=== PATIENT | male | born 1945 | race Caucasian/White ===

== ENCOUNTER → 2018-06-24 13:16 | Outpatient (CLI) | payer MEDICARE, MEDICAID, SELFPAY ==
[2018-06-24 14:16] LABS: Alanine Aminotransferase 22 IU/L (21-72); Albumin 4.3 g/dL (3.5-5.0); Albumin Globulin Ratio 1.3 (1.0-2.8); Alkaline Phosphatase 55 U/L (38-126); Aspartate Aminotransferase 32 IU/L (17-59); Bilirubin Total 0.7 mg/dL (0.2-1.3); Blood Urea Nitrogen 17 mg/dL (9-20); Calcium 9.2 mg/dL (8.4-10.2); Carbon Dioxide 34 mmol/L (22-32); Chloride 102 mmol/L (98-107); Estimated Glomerular Filt Rate > 60.0 mL/min (>60); Globulin 3.2 g/dL (1.7-4.1); Glucose 110 mg/dL (80-110); HEMOLYSIS < 15 (0-50); Potassium 4.1 mmol/L (3.4-5.1); Sodium 144 mmol/L (137-145); Total Protein 7.5 g/dL (6.3-8.2)
== END ==
PROVIDERS: PCP Internal Medicine; Visit Provider Internal Medicine
DX: I10 Essential (primary) hypertension (principal); R60.9 Edema, unspecified
CPT/HCPCS: 36415; 80053

== ENCOUNTER → 2018-07-08 16:17 | Outpatient (CLI) | payer MEDICARE, MEDICAID, SELFPAY | PROVIDERS: PCP Internal Medicine; Visit Provider Internal Medicine | DX: R97.20 Elevated prostate specific antigen [PSA] (principal) | CPT/HCPCS: 36415; 84153 ==

== ENCOUNTER → 2018-07-22 15:45 | Outpatient (CLI) | payer MEDICARE, MEDICAID, SELFPAY ==
[2018-07-25 13:40] LABS: Fecal Immunochemical Test NOT DETECTED
== END ==
PROVIDERS: Family Provider Internal Medicine; PCP Internal Medicine; Visit Provider Internal Medicine
DX: Z12.11 Encounter for screening for malignant neoplasm of colon (principal)
CPT/HCPCS: 82274

== ENCOUNTER → 2019-03-09 09:32 | Outpatient (CLI) | payer MEDICARE, MEDICAID, SELFPAY ==
[2019-03-09 11:14] LABS: Alanine Aminotransferase 27 IU/L (21-72); Albumin 3.9 g/dL (3.5-5.0); Albumin Globulin Ratio 1.3 (1.0-2.8); Alkaline Phosphatase 53 U/L (38-126); Aspartate Aminotransferase 34 IU/L (17-59); Bilirubin Total 0.9 mg/dL (0.2-1.3); Blood Urea Nitrogen 18 mg/dL (9-20); Calcium 9.4 mg/dL (8.4-10.2); Carbon Dioxide 34 mmol/L (22-32); Chloride 101 mmol/L (98-107); Cholesterol 153 mg/dL (140-199); Estimated Glomerular Filt Rate > 60.0 mL/min (>60); Globulin 2.9 g/dL (1.7-4.1); Glucose 82 mg/dL (80-110); HDL Cholesterol 50 mg/dL (40-60); HEMOLYSIS < 15 (0-50); LDL Cholesterol Calculated 94 mg/dL (<100); Potassium 4.4 mmol/L (3.4-5.1); Sodium 140 mmol/L (137-145); Total Protein 6.8 g/dL (6.3-8.2); Triglycerides 44 mg/dL (35-150)
[2019-03-09 11:40] LABS: Prostate Specific Antigen 5.24 ng/mL (0.10-4.00)
== END ==
PROVIDERS: Family Provider Internal Medicine; PCP Internal Medicine; Visit Provider Internal Medicine
DX: I10 Essential (primary) hypertension (principal); R60.9 Edema, unspecified; R97.20 Elevated prostate specific antigen [PSA]
CPT/HCPCS: 36415; 80053; 80061; 84153

== ENCOUNTER → 2019-09-11 10:54 | Outpatient (CLI) | payer MEDICARE, MEDICAID, SELFPAY ==
--- NOTE | 2019-09-11 11:01 | DI.CT.S_ITS ---
PROCEDURE: CT SOFT TISSUE NECK WO CON INDICATIONS: lymphadenopathy TECHNIQUE: Non-contrast 3.0 mm axial sections acquired from the sella to the aortic arch. Additional oblique axial 3.0 mm sections acquired through the pharynx. 3 mm thick coronal and sagittal reformats were generated. For radiation dose reduction, the following was used: automated exposure control. COMPARISON: None. FINDINGS: Image quality: Significantly limited by absence of intravenous contrast.. Lymph nodes: There appears to be enlarged lymph nodes involving the left neck, best seen at the anterior border of the sternocleidomastoid muscle on the left where a node measuring up to 1.6 x 2.2 cm in maximal axial dimension can be seen (series 2 image 31). Slightly more superiorly along the left tonsillar pillar there is a masslike structure with a maximal axial dimension of up to 2.3 cm oblique AP and 2.7 cm transverse, with an estimated craniocaudad length of 4 cm. This mass appears to distort the left margin of the pharynx, best seen centered on series 2 image 20. The absence of intravenous contrast disallows accurate establishing of the exact borders between what appears to be infiltrative soft tissue mass and adjacent normal structures.. Vessels: Non-opacified vessels appear normal in caliber. Neck spaces: The oropharynx, nasopharynx, and pharynx demonstrate no definite inward projecting mucosal lesions but the left-sided tonsillar pillar mass may be associated with a visible mucosal lesion on examination. The vocal cords, false vocal cords, pyriform sinuses, epiglottis, vallecula, and tongue base all appear normal. Extramucosal spaces appear unremarkable. Glands: The parotid and submandibular glands appear normal, without stones. Thyroid gland appears normal where well seen. Miscellaneous: Visualized brain and orbits appear normal. Lung apices appear clear. Superficial soft tissues appear normal. IMPRESSION: Quality of visualization is significantly limited by the absence of intravenous contrast. The findings are worrisome for representing a malignant appearing mass along the soft tissues deep to the mucosal surface over the left tonsillar pillar, with associated adjacent adenopathy. An area of osteomyelitis involving the maxilla or mandible nearby on the left is not found. Contrast enhanced CT scanning or MR scanning would appear warranted as would be ENT consultation for direct visualization and clinical evaluation into the areas of current CT concern. Dictated by: Demond Bejarano M.D. on 09/11/2019 at 16:21 Approved by: Demond Bejarano M.D. on 09/11/2019 at 16:30
== END ==
PROVIDERS: Family Provider Internal Medicine; PCP Internal Medicine; Visit Provider Internal Medicine
DX: R59.0 Localized enlarged lymph nodes (principal)
CPT/HCPCS: 70490

== ENCOUNTER → 2019-10-28 12:44 | Outpatient (CLI) | payer MEDICARE, MEDICAID, SELFPAY ==
[2019-10-28 14:12] LABS: Alanine Aminotransferase 12 IU/L (<50); Albumin Globulin Ratio 1.1 (1.0-2.8); Alkaline Phosphatase 58 U/L (38-126); Aspartate Aminotransferase 29 IU/L (17-59); BUN Creatinine Ratio 16.7 (6-22); Bilirubin Total 0.5 mg/dL (0.2-1.3); Blood Urea Nitrogen 15 mg/dL (9-20); Calcium 9.3 mg/dL (8.4-10.2); Carbon Dioxide 31 mmol/L (22-32); Chloride 99 mmol/L (98-107); Estimated Glomerular Filt Rate > 60.0 mL/min (>60); Globulin 3.5 g/dL (1.7-4.1); Glucose 101 mg/dL (80-110); HEMOLYSIS < 15 (0-50); Potassium 4.3 mmol/L (3.4-5.1); Sodium 139 mmol/L (137-145); Total Protein 7.5 g/dL (6.3-8.2)
[2019-10-28 15:44] LABS: Prostate Specific Antigen 9.09 ng/mL (0.10-4.00)
== END ==
PROVIDERS: Family Provider Internal Medicine; PCP Internal Medicine; Referring Provider Internal Medicine; Visit Provider Internal Medicine
DX: I10 Essential (primary) hypertension (principal); R97.20 Elevated prostate specific antigen [PSA]
CPT/HCPCS: 36415; 80053; 84153

== ENCOUNTER → 2019-10-31 09:42 | Outpatient (CLI) | payer MEDICARE, MEDICAID, SELFPAY ==
--- NOTE | 2019-10-31 10:38 | DI.CT.S_ITS ---
PROCEDURE: CT CHEST W CON INDICATIONS: left tonsil cancer TECHNIQUE: After the administration of intravenous contrast, 5 mm thick sections acquired from the pulmonary apices to the posterior costophrenic angles. 1 mm axial lung, 5 mm thick coronal and sagittal reformats and 7 mm axial MIP were acquired. For radiation dose reduction, the following was used: automated exposure control, adjustment of mA and/or kV according to patient size. COMPARISON: [facility], CT, CT SOFT TISSUE NECK W CON, 10/31/2019, 10:17. FINDINGS: Image quality: Excellent. Lungs and pleura: No acute air space opacities. No pleural effusions or pneumothorax. Central and peripheral airways are patent and normal in caliber. Mediastinum: Heart size is normal. No pericardial effusion. No mediastinal or hilar adenopathy by size criteria. Thoracic aorta and central pulmonary arteries are normal in size. Esophagus is normal in caliber. No hiatal hernia. Bones and chest wall: No suspicious bony lesions. No vertebral body compression fractures. No axillary or supraclavicular adenopathy by size criteria. Thyroid gland appears normal where well seen. Abdomen: Visualized upper abdominal solid organs appear normal. Upper abdominal bowel loops are normal in caliber. IMPRESSION: No evidence of metastatic disease from documented head and neck cancer on the left. Pulmonary hyperexpansion, centrilobular emphysema, but no evidence of pulmonary mass lesion is found. No mediastinal or hilar adenopathy is seen. Dictated by: Demond Bejaarno M.D. on 10/31/2019 at 13:23 Approved by: Demond Bejarano M.D. on 10/31/2019 at 13:25
--- NOTE | 2019-10-31 10:38 | DI.CT.S_ITS ---
PROCEDURE: CT SOFT TISSUE NECK W CON INDICATIONS: TONSIL CANCER TECHNIQUE: After the administration of intravenous contrast, 3.0 mm axial sections acquired from the sella to the aortic arch. Additional oblique axial 3.0 mm sections acquired through the pharynx. 3 mm thick coronal and sagittal reformats were generated. For radiation dose reduction, the following was used: automated exposure control. COMPARISON: [facility], CT, CT SOFT TISSUE NECK WO CON, 09/11/2019, 10:54. [facility], [place], PET NECK TO MID THIGH, 10/25/2019, 10:00. [facility], CT, CT CHEST W CON, 10/31/2019, 10:17. FINDINGS: Image quality: Excellent. Lymph nodes: There is an enlarged left level IIA lymph node seen, as on series 2 image 47, which measures 2 x 1.6 cm in greatest axial dimension. Vessels: Visualized vasculature appears patent. Neck spaces: Within the left tonsillar region, there is an enhancing mass seen, as on series 2 image 37 measures 2.9 x 2.2 cm in greatest axial dimension and corresponds well to the prior images. The nasopharynx, and pharynx demonstrate no mucosal lesions. The vocal cords, false vocal cords, pyriform sinuses, epiglottis, vallecula, and tongue base all appear normal. Extramucosal spaces appear unremarkable. Glands: The parotid and submandibular glands appear normal. Thyroid gland demonstrates no significant CT abnormality. Miscellaneous: Visualized brain and orbits appear normal. Lung apices appear clear. Superficial soft tissues appear normal. Bones: No suspicious bony lesions. Visualized sinuses and mastoids appear unremarkable. Relatively prominent cervical spine degenerative changes are seen, including bridging anterior osteophytes C4-C6. Moderate to severe disc space narrowing can be seen at C5-C6 and C6-C7. IMPRESSION: Left tonsillar mass, with an enlarged left cervical lymph node. No significant changes from prior images can be seen. Prominent cervical spine degenerative changes are seen. Dictated by: Broderick Longoria M.D. on 10/31/2019 at 13:19 Approved by: Broderick Longoria M.D. on 10/31/2019 at 13:23
== END ==
PROVIDERS: Family Provider Internal Medicine; PCP Internal Medicine; Referring Provider Internal Medicine Hematology & Oncology; Visit Provider Internal Medicine Hematology & Oncology
DX: C09.9 Malignant neoplasm of tonsil, unspecified (principal); R59.0 Localized enlarged lymph nodes; M47.812 Spondylosis without myelopathy or radiculopathy, cervical region
CPT/HCPCS: 70491; 71260; Q9967

== ENCOUNTER 2019-11-07 13:31 | Day surgery (SDC) | payer MEDICARE, MEDICAID, SELFPAY ==
[2019-11-06 08:17] VITALS: BMI 30.3
[2019-11-07 13:58] VITALS: BP 111/66; PULSE 63; RESP 12; O2SAT 99; BMI 30.3
[2019-11-07] MEDS: LACTATED RINGERS 1,000 ML 42 ML IV (14:30)
--- NOTE | 2019-11-07 15:25 | PM.HP.1 ---
History of Present Illness History of Present Illness Date Patient Seen: 11/07/19 Time Patient Seen: 15:25 Chief complaint: [id number] Narrative: This 74-year-old man with left tonsil squamous cell carcinoma who requires a Port-A-Cath placement for chemotherapy. He recently had a dental infection has been on antibiotic therapy and is recovering. No fever. No external wounds. No previous Port-A-Cath placement or major vascular interventions. Patient History Medical History Edema (Chronic 10/06/11) Elevated PSA (Chronic) Essential hypertension (Chronic 10/06/11) Hypertension (Chronic) Recurrent major depressive disorder, in full remission (Chronic 10/06/11) Surgical History History of surgery on upper extremity (Acute ~1952) Family & Social History Family History Mother Pancreatic cancer Thyroid cancer Father Prostate cancer Social History: household members spouse lives independently Yes caregiver/support person No Tobacco & Substance use: Tobacco type cigarettes,pipe,cigars Smoking Status Former smoker alcohol intake current alcohol intake frequency a few times a month Substance Use Type does not use Meds Home Medications and Allergies Home Medications Medication Instructions Recorded Confirmed Type Disabled Parking #1 each 08/08/18 10/30/19 Rx lamotrigine 100 mg tablet See Rx Instructions .ROUTE 06/30/19 11/07/19 Rx .COMPLEX #90 tablet atenolol 50 mg tablet See Rx Instructions .ROUTE 09/26/19 11/07/19 Rx .COMPLEX #90 tablet Tylenol 500 mg PRN 11/07/19 History Vision BID 11/07/19 History clindamycin HCl 300 mg QID 11/07/19 11/07/19 History ibuprofen 200 mg PRN 11/07/19 History metronidazole 500 mg TID 11/07/19 11/07/19 History Allergies Allergy/AdvReac Type Severity Reaction Status Date / Time Penicillins [PENICILLINS] Allergy Mild A CHILD Verified 09/05/19 10:05 Review of Systems Review of Systems Narrative: A 10 point review of systems is negative except as noted in the HPI Exam Vital Signs (past 8 hours): - 11/07/19 13:58 Pulse Rate 63 Respiratory Rate 12 Blood Pressure 111/66 Pulse Oximetry 99 Oxygen Delivery Method Room Air Narrative Exam Narrative: General-no acute distress, well nourished HEENT-moist mucous membranes, no scleral icterus Neck-supple, no lymphadenopathy Chest- non labored respirations, clear to auscultation bilaterally Cardiac-regular rate no peripheral edema Abdomen-soft, nontender, non distended Extremities-warm, well perfused Neurological-alert and oriented, no focal deficits Assessment & Plan Assessment and plan (1) Squamous cell carcinoma of left tonsil: Current visit: Yes Status: Acute Assessment & Plan narrative: 74-year-old male head and neck cancer requires Port-A-Cath placement. We discussed the nature of the procedure and its risks including bleeding infection pneumothorax. His questions have been answered and he is in agreement with this plan. Proceed to the operating.
[2019-11-07] MEDS: CLINDAMYCIN 900 MG/50 ML PIGGYBACK 50 MG IV (16:01)
--- NOTE | 2019-11-07 16:17 | SUR.OPER ---
Supine on padded OR bed, head on pillow, arm padded and tucked at side, legs uncrossed, safety belt at thigh, tape over blanket over lower legs .
[2019-11-07] MEDS: BUPIVACAINE 0.25% (PF) VIAL 30 ML INJ (16:20)
[2019-11-07] MEDS: HEPARIN 5,000 UNIT, SODIUM CHLORIDE 0.9% 50 ML IV (16:21)
--- NOTE | 2019-11-07 16:31 | DI.RAD.S_ITS ---
PROCEDURE: XR CHEST 1V INDICATIONS: POST PORT PLACEMENT TECHNIQUE: One view of the chest was acquired. COMPARISON: None. FINDINGS: Surgical changes and devices: Port-A-Cath in satisfactory position. Tip projects to the superior vena cava. Lungs and pleura: Lungs are clear. No pleural effusions or pneumothorax. Mediastinum: Mediastinal contours appear normal. Heart size is normal. Bones and chest wall: No suspicious bony lesions. Overlying soft tissues appear unremarkable. IMPRESSION: Port-A-Cath in satisfactory position. No acute pulmonary process. Dictated by: Kun Brink M.D. on 11/08/2019 at 9:08 Approved by: Kun Brink M.D. on 11/08/2019 at 9:09
[2019-11-07 16:43] VITALS: BP 108/64; PULSE 58; RESP 11; TEMP 36.9; O2SAT 99
[2019-11-07 16:48] VITALS: BP 103/57; PULSE 60; RESP 12; O2SAT 98
[2019-11-07 16:52] VITALS: BP 108/67; PULSE 60; RESP 14; TEMP 36.8; O2SAT 100
--- NOTE | 2019-11-07 16:56 | PM.OP.1 ---
Operative Date/Time/Diagnoses Date of procedure: 11/07/19 Time of procedure: 16:56 Pre-op diagnosis: squamous cell carcinoma of tonsil Post-op diagnosis: same Procedure & Clinicians Procedure: right port a cath placement Same procedure as scheduled: Yes Indications: squamous cell carcinoma of tonsil Surgeon: iKshor Solis Click Yes if Unassisted: Yes Anesthesia Type: General Operative Notes Findings: tip of cathether within the SVC. Estimated Blood Loss (mL): 10 Procedure in detail: Patient was brought to the operating room placed supine on table. Bilateral lower extremity compressive devices were applied. General anesthesia was induced and he was intubated with an LMA. He was then prepped and draped in usual sterile fashion. Time-out was performed ensure the correct patient procedure necessary equipment within the operating room. He received 2 g of Ancef prior to incision. Under ultrasound guidance the right internal jugular vein was accessed under direct visualization. The guidewire was then threaded through the needle. Its placement was then confirmed using fluoroscopy. The dilator was then placed over the guidewire. The catheter was then inserted through the sheath. Placement was again confirmed with fluoroscopy. A subcutaneous pocket was made in the right chest wall. The tunneler device was used to move the catheter from the neck to the chest pocket. The port was attached after it was primed with heparined saline. The port was tested to ensure that it flushed easily and had good blood return. The port was then secured to the underlying fascia using interupted 0 Prolene suture. Hemostasis was achieved. The wound was irrigated with sterile saline. The subcutaneous tissues were reapproximated with the 3 0 Vicryl and then skin closed with 4-0 Monocryl. The skin was sealed with Dermabond. Patient tolerated procedure well. The sponge and instrument count at the end operation was correct. Patient emerged from general anesthesia was extubated and taken to the postoperative care unit in stable condition Complications: none Post-operative Condition: stable Disposition: same day surgery
[2019-11-07 16:58] VITALS: BP 107/68; PULSE 58; RESP 15; TEMP 36.8; O2SAT 100
[2019-11-07 17:14] VITALS: BP 110/70; PULSE 68; RESP 14; O2SAT 100
== END 2019-11-07 17:17 | disposition home or self-care (01) ==
PROVIDERS: Family Provider Internal Medicine; PCP Internal Medicine; Referring Provider Surgery; Visit Provider Surgery
PROC: (CPT 36561; principal; 2019-11-07 14:15)
DX: C09.9 Malignant neoplasm of tonsil, unspecified (principal); Z45.2 Encounter for adjustment and management of vascular access device
CPT/HCPCS: 36561; 71045; 76000; C1788; J1644; J2250; J2405; J2704; J3010

== ENCOUNTER 2019-11-18 12:36 | Emergency (ER) | payer MEDICARE, MEDICAID, SELFPAY ==
[2019-11-18 13:01] VITALS: BP 137/92; BP 140/74; PULSE 76; PULSE 84; RESP 14; RESP 16; TEMP 36.4; O2SAT 100; O2SAT 98
--- NOTE | 2019-11-18 13:15 | ED.SKABFB ---
HPI - Skin/Abscess/Foreign Bdy <GABRIELE Michel - Last Filed: 11/18/19 18:47> General Chief complaint: Skin/Abscess/Foreign Body Stated complaint: Rash from antibiotics, sent from [facility] Time Seen by Provider: 11/18/19 12:50 Source: patient and family Mode of arrival: Ambulatory Limitations: no limitations History of Present Illness HPI narrative: The patient is a 74-year-old male who presents with his for chief complaint of a rash on his lower legs. He is a former smoker, scheduled to start radiation chemotherapy next week for a cancer ?attached my tonsil.He states that he recently finished a course of clindamycin and Flagyl for dental infection. He states that he noticed the rash today and that it is speckled on the back of his lower legs. He states he has bilateral lower extremity edema. 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 He states that the rash is not itchy, not painful, and is not blistering. He states his on the back of both of his lower legs, left more so than right. He denies any other rash, any oral mucosa issues, any burning on urination. Related Data Home Medications Medication Instructions Recorded Confirmed Tylenol 500 mg PRN 11/07/19 Vision BID 11/07/19 clindamycin HCl 300 mg QID 11/07/19 11/07/19 ibuprofen 200 mg PRN 11/07/19 metronidazole 500 mg TID 11/07/19 11/07/19 Previous Rx's Medication Instructions Recorded Disabled Parking #1 each 08/08/18 lamotrigine 100 mg tablet See Rx Instructions .ROUTE 06/30/19 .COMPLEX #90 tablet atenolol 50 mg tablet See Rx Instructions .ROUTE 09/26/19 .COMPLEX #90 tablet acetaminophen [Tylenol] 650 mg PO QID PRN #60 cap 11/07/19 Allergies Allergy/AdvReac Type Severity Reaction Status Date / Time Penicillins [PENICILLINS] Allergy Mild A CHILD Verified 09/05/19 10:05 Review of Systems <GABRIELE Michel - Last Filed: 11/18/19 18:47> Review of Systems Narrative: GENERAL: Denies chills, fatigue, malaise, fever, sweats. HEENT: Denies sinus pain, ear pain, sore throat, difficulty swallowing, dizziness. RESPIRATORY: Denies dyspnea, cough, wheezing, hemoptysis, sputum. CARDIOVASCULAR: Denies chest pain, palpitations, orthopnea, edema, GASTROINTESTINAL: Denies nausea, vomiting, abdominal pain, diarrhea, constipation, melena. : Denies dysuria, frequency, incontinence, hematuria, urinary retention. MUSCULOSKELETAL: denies weakness, joint pain, or bony pain SKIN: See HPI NEUROLOGIC: Denies weakness, headache, numbness, change in speech, confusion, seizures, incoordination. PSYCHIATRIC: No concerning psychosocial issues. 12 point review of systems is negative except for those stated above Patient History <GABRIELE Michel - Last Filed: 11/18/19 18:47> Social History marital status: number of children: 4 household members: spouse lives independently: Yes caregiver/support person: No housing: house pets and animals: No education level: other (Graduate school after [employer]) occupational status: other (Retired) Previous occupational history: [employer] in [place] [employer]ianism: [employer] travel history: over 6 months ago (2002 for 5 months) leisure activities: fishing Smoking Status: Former smoker Tobacco: How many years used: 15 Smokeless tobacco user: other (Cigarettes, pipe, cigars) quit status: quit date established (1980) second hand exposure: No alcohol intake: current substance use type: does not use Smoking Status: Former smoker alcohol intake frequency: a few times a month Substance Use Type: does not use Exam <GABRIELE Michel - Last Filed: 11/18/19 18:47> Narrative Exam Narrative: GENERAL: This is a well-nourished, well-developed patient, in no acute distress HEAD: Atraumatic. Normocephalic. No temporal or scalp tenderness. EYES: Pupils equal round and reactive. Extraocular motions intact. No scleral icterus. No injection or drainage. ENT: Nose without bleeding, purulent drainage or septal hematoma. Throat without erythema, tonsillar hypertrophy or exudate. Uvula midline. Airway patent. NECK: Trachea midline. No JVD or lymphadenopathy. Supple, nontender, no meningeal signs. CARDIOVASCULAR: Regular rate and rhythm RESPIRATORY: Clear to auscultation. Breath sounds equal bilaterally. No wheezes, rales, or rhonchi. No cough. No increased respiratory effort. No accessory muscle use. EXTREMITIES: 2 to 3+ edema noted bilateral lower extremities. BACK: Nontender without deformity or crepitance. No flank tenderness. NEURO: AOx3. SKIN: Very slight diffuse macular rash on posterior of bilateral lower legs. No bullae, no vesicles, no drainage. No other rash noted. Initial Vital Signs Initial Vital Signs: Vital Signs Temperature 97.5 F L 11/18/19 13:01 Pulse Rate 76 11/18/19 13:01 Respiratory Rate 14 11/18/19 13:01 Blood Pressure 137/92 H 11/18/19 13:01 Pulse Oximetry 98 11/18/19 13:01 <Augusto Pennington DO - Last Filed: 11/18/19 18:52> Initial Vital Signs Initial Vital Signs: Vital Signs Temperature 97.5 F L 11/18/19 13:01 Pulse Rate 76 11/18/19 13:01 Respiratory Rate 14 11/18/19 13:01 Blood Pressure 137/92 H 11/18/19 13:01 Pulse Oximetry 98 11/18/19 13:01 Course <GABRIELE Michel - Last Filed: 11/18/19 18:47> Vital Signs Vital signs: Vital Signs - 8 hr 11/18/19 13:01 Temperature 97.5 F L Pulse Rate 84 Respiratory Rate 16 Blood Pressure 140/74 Blood Pressure [Left Arm] 137/92 H Pulse Oximetry 100 <Augusto Pennington DO - Last Filed: 11/18/19 18:52> Vital Signs Vital signs: Vital Signs - 8 hr 11/18/19 13:01 Temperature 97.5 F L Pulse Rate 84 Respiratory Rate 16 Blood Pressure 140/74 Blood Pressure [Left Arm] 137/92 H Pulse Oximetry 100 MDM - Skin/Abscess/Foreign Bdy <GABRIELE Michel - Last Filed: 11/18/19 18:47> MDM Narrative Medical decision making narrative: The patient is a 74-year-old male who presents with chief complaint of a rash that he noticed today. He is concerned about Montoya-Sunny syndrome given that he just finished clindamycin and Flagyl. His exam does not correlate with SJS. His rash is not painful, he has no drainage or bullae. I believe his rash is more likely related to edema/venous stasis dermatitis. I discussed at length following up with primary care provider, elevating his legs bilaterally. Patient have no questions or concerns upon discharge and state understanding of return precautions as well as follow-up care. Discharge Plan Departure Patient Disposition: Home Clinical Impression: Rash Discharge Date/Time: 11/18/19 13:58 Instructions: DI for Rash Activity Restrictions/Additional Instructions: As discussed, your rash does not correlate with Montoya-Sunny syndrome at this point time Please monitor for any acute changes such as those I described and showed you such as painful rash etcetera At this point please try elevating your legs. I also suggest keeping your skin well-hydrated with Eucerin and or Aquaphor etcetera Please follow-up with primary care provider Please come back to the emergency department for any acute concerns Prescriptions: No Action (DME) Disabled Parking Qty: 1 RF: 0 lamotrigine 100 mg tablet See Rx Instructions .ROUTE .COMPLEX Qty: 90 RF: 1 atenolol 50 mg tablet See Rx Instructions .ROUTE .COMPLEX Qty: 90 RF: 1 Tylenol 500 mg 500 mg PRN (Reason: Pain (Scale Score 4-6)) RF: 0 Vision BID RF: 0 clindamycin HCl 300 mg 300 mg QID RF: 0 ibuprofen 200 mg 200 mg PRN (Reason: Pain (Scale Score 1-3)) RF: 0 metronidazole 500 mg 500 mg TID RF: 0 acetaminophen [Tylenol] 325 mg capsule 650 mg PO QID PRN (Reason: pain) Qty: 60 RF: 0 Referrals: Dwayne Ibarra MD [Primary Care Provider] -
--- NOTE | 2019-11-18 13:56 | PC.NURSE ---
pt reported left lower leg noted with rash,red, which resolved in ED. no respiratory distress, no other rash noted.
== END 2019-11-18 13:58 | disposition home or self-care (01) ==
PROVIDERS: Emergency Provider Nurse Practitioner Family; Family Provider Internal Medicine; PCP Internal Medicine
DX: R21 Rash and other nonspecific skin eruption (principal)
CPT/HCPCS: 99281

== ENCOUNTER → 2019-12-22 11:35 | Outpatient (CLI) | payer MEDICARE, MEDICAID, SELFPAY ==
--- NOTE | 2019-12-22 11:37 | DI.MRI.S_ITS ---
PROCEDURE: MR HEAD/BRAIN WO/W CON INDICATIONS: right wrist drop, tonsil cancer TECHNIQUE: Noncontrast axial T1 spin echo, axial T2 fast spin echo, sagittal and axial FLAIR, coronal T2 fast spin echo, axial gradient echo, axial diffusion and ADC through the brain. After the administration of contrast, axial and coronal T1 spin echo with fat saturation through the brain. COMPARISON: None. FINDINGS: Image quality: Excellent. CSF spaces: Basal cisterns are patent. No extra-axial fluid collections. Ventricles are normal in size and shape. Brain: No midline shift. No intracranial bleeds or masses. No abnormal intracranial enhancement. There is cerebral volume loss for age. There is mild to moderate periventricular white matter chronic small vessel ischemic change. The brainstem appears normal. Diffusion-weighted images demonstrate no acute ischemic insults. 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 Normal intravascular flow voids are present. Skull and face: Calvarial marrow is normal in signal. Orbits appear normal. Sinuses: Sinuses and mastoids appear clear. IMPRESSION: 1. Age related volume loss and mild to moderate small vessel ischemic change. 2. 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 3. No evidence acute stroke, hemorrhage, or mass. Dictated by: Kun Brink M.D. on 12/22/2019 at 12:49 Approved by: Kun Brink M.D. on 12/22/2019 at 12:54
== END ==
PROVIDERS: Family Provider Internal Medicine; PCP Internal Medicine; Referring Provider Internal Medicine Hematology & Oncology; Visit Provider Internal Medicine Hematology & Oncology
DX: C09.1 Malignant neoplasm of tonsillar pillar (anterior) (posterior) (principal); M21.331 Wrist drop, right wrist; Z86.73 Personal history of transient ischemic attack (TIA), and cerebral infarction without residual deficits
CPT/HCPCS: 70553; 96360

== ENCOUNTER → 2020-01-15 08:04 | Outpatient (CLI) | payer MEDICARE, MEDICAID, SELFPAY ==
--- NOTE | 2020-01-15 08:06 | DI.ECHO.S_ITS ---
[facility] +---------+ [facility] +---------+ : : [address] : : : : [place], [place] : : : : [id number] : : : : Phone: [phone] Echocardiogram Report + + :Name: Kash Choi Study Date: 01/15/2020 Height: 70 in : :[facility] Weight: 173 lb : : Gender: Other BSA: 2.0 m2 : :: 1945 Age: 74 yrs BP: 118/78 mmHg: :Reason For Study: BLE Swelling : : Performed By: Saloni Lewis : + + Interpretation Summary 1) Normal left ventricular size, wall motion, and systolic function (EF 60- 65%). 2) Normal right ventricular size and function. 3) No significant valvular abnormalities. 4) No prior Echo available for comparison. Ordering Physician: Sonia Sanchez, FAX: Procedure: A two-dimensional transthoracic echocardiogram with color flow and Doppler was performed. The study quality was technically adequate. There is no prior echocardiogram noted for this patient. The patient was in normal sinus rhythm during the exam. The heart rate ranged between 87-94 bpm during the study. Left Ventricle: The left ventricle is normal in size. Left ventricular wall thickness is at the upper limits of normal. The ejection fraction is estimated to be 60-65%. Left ventricular systolic function is normal without focal wall motion abnormalities. Right Ventricle: The right ventricle is normal in size and function. Atria: The left atrial size is normal. The right atrium is normal in size. There is no Doppler evidence for an interatrial shunt. Mitral Valve: The mitral valve is normal in structure and function. There is trace mitral regurgitation. Aortic Valve: The aortic valve is trileaflet. The aortic valve opens well. There is no aortic valve stenosis. No aortic regurgitation is present. Tricuspid Valve: The tricuspid valve is normal in structure and function. There is mild tricuspid regurgitation. The right ventricular systolic pressure is estimated to be at least 30 mmHg based on an estimated right atrial pressure of 3 mm Hg. Pulmonic Valve: The pulmonic valve is not well visualized. There is trace pulmonic regurgitation. Great Vessels: The aortic root is normal size. The ascending aorta could not be visualized. The IVC is of normal diameter and collapses greater than 50% with a sniff. This suggests a low right atrial pressure of 3 mm Hg. Pericardium/ Pleura There is no pericardial effusion. There is no pleural effusion. MMode/2D Measurements & Calculations LVIDd: 4.3 cm LVOT diam: 2.0 cm LVIDs: 3.1 cm Ao root diam: 3.6 cm FS: 28.0 % EPSS: 0.65 cm IVSd: 1.2 cm LVPWd: 1.0 cm LV hansen. diameter/BSA (cm/m^2): 2.2 LV sys. diameter/BSA (cm/m^2): 1.6 LA A2 area: 16.8 cm2 RA long axis: 3.8 cm LA A4 area: 12.0 cm2 RA area: 12.3 cm2 LA length (vol): 4.1 cm RA vol: 33.9 ml LA vol: 41.5 ml RA : 17.3 ml/m2 LA vol index: 21.1 ml/m2 RVD1 (basal): 3.6 cm TAPSE: 1.8 cm Doppler Measurements & Calculations Ao V2 max: 141.7 cm/sec LVOT Max Abhilash: 118.1 cm/sec Ao V2 mean: 92.5 cm/sec LV V1 max P.6 mmHg Ao max P.0 mmHg LV V1 VTI: 20.8 cm Ao mean P.9 mmHg DIANNA(I,D): 3.2 cm2 Ao V2 VTI: 21.1 cm DIANNA(V,D): 2.7 cm2 sev ratio: 0.99 DIANNA indexed to BSA (cm^2/m^2): 1.6 MV E max abhilash: 59.9 cm/sec TR max abhilash: 261.3 cm/sec MV A max abhilash: 65.7 cm/sec TR max P.4 mmHg MV E/A: 0.91 PA V2 max: 82.4 cm/sec Med Peak E' Abhilash: 5.4 cm/sec PA V2 mean: 47.5 cm/sec E/E' med: 11.2 PA mean P.1 mmHg Lat Peak E' Abhilash: 6.7 cm/sec PA pr(Accel): 32.8 mmHg E/E' lat: 9.0 E/e' average: 10.1 MV dec time: 0.33 sec SV(LVOT): 66.7 ml Reading Physician:12:53 PM
== END ==
PROVIDERS: Family Provider Internal Medicine; PCP Internal Medicine; Referring Provider Internal Medicine Hematology & Oncology; Visit Provider Internal Medicine Hematology & Oncology
DX: C09.9 Malignant neoplasm of tonsil, unspecified (principal); I07.1 Rheumatic tricuspid insufficiency; M79.89 Other specified soft tissue disorders
CPT/HCPCS: 93306

== ENCOUNTER → 2020-02-22 13:31 | Outpatient (CLI) | payer MEDICARE, MEDICAID, SELFPAY ==
--- NOTE | 2020-02-22 13:33 | DI.CT.S_ITS ---
PROCEDURE: CT SOFT TISSUE NECK W CON INDICATIONS: tonsil cancer TECHNIQUE: After the administration of intravenous contrast, 3.0 mm axial sections acquired from the sella to the aortic arch. Additional oblique axial 3.0 mm sections acquired through the pharynx. 3 mm thick coronal and sagittal reformats were generated. For radiation dose reduction, the following was used: automated exposure control. COMPARISON: [facility], CT, CT SOFT TISSUE NECK W CON, 10/31/2019, 10:17. [facility], CT, CT SOFT TISSUE NECK WO CON, 09/11/2019, 10:54. FINDINGS: Image quality: Excellent. Lymph nodes: No enlarged lymph nodes seen throughout the neck. Enlarged left level IIA lymph node identified a prior CT scan obtained 10/31/2019 is decreased in size measuring 0.8 cm in short axis and the current study (1.6 cm previously). Vessels: Visualized vasculature appears patent. Neck spaces: Left tonsillar mass is decreased in size compared to the prior examination without definite evidence of residual neoplasm. No new tonsillar masses or mucosal base mass is identified. The nasopharynx, and pharynx demonstrate no mucosal lesions. The vocal cords, false vocal cords, pyriform sinuses, epiglottis, vallecula, and tongue base all appear normal. Extramucosal spaces appear unremarkable. Glands: The parotid and submandibular glands appear normal. Thyroid gland is within normal limits. Miscellaneous: Visualized brain and orbits appear normal. Lung apices appear clear. Superficial soft tissues appear normal. Right chest wall Port-A-Cath is in place in the interval since our exam. Bones: No suspicious bony lesions. Spine degenerative disc disease and facet arthropathy. Visualized sinuses and mastoids appear unremarkable. IMPRESSION: 1. Left tonsillar mass decreased in size compared to 10/31/[address] evidence of residual neoplasm. 2. No lymphadenopathy based on size criteria. Left level IIA enlarged lymph node decreased in size in the interval since prior CT scan. Dictated by: Roya Mercado MD, PhD on 02/22/2020 at 17:52 Approved by: Roya Mercado MD, PhD on 02/22/2020 at 18:12
== END ==
PROVIDERS: Family Provider Internal Medicine; PCP Internal Medicine; Referring Provider Internal Medicine Hematology & Oncology; Visit Provider Internal Medicine Hematology & Oncology
DX: C09.9 Malignant neoplasm of tonsil, unspecified (principal); R59.0 Localized enlarged lymph nodes
CPT/HCPCS: 70491; Q9967

== ENCOUNTER → 2020-10-14 09:03 | Outpatient (CLI) | payer OTHER, MEDICAID, SELFPAY ==
[2020-10-14 11:46] LABS: COVID19 -Nasal RAPID Negative (Negative)
== END ==
PROVIDERS: Family Provider Internal Medicine; PCP Internal Medicine; Visit Provider Surgery
DX: Z01.812 Encounter for preprocedural laboratory examination (principal); Z20.822 Contact with and (suspected) exposure to COVID-19
CPT/HCPCS: 87635; C9803

== ENCOUNTER 2020-10-15 06:41 | Day surgery (SDC) | payer OTHER, MEDICAID, SELFPAY ==
[2020-10-15] VITALS (7 sets, daily range): BP systolic 121–130; BP diastolic 61–73; PULSE 73–86; RESP 11–18; TEMP 36.4–37.2; O2SAT 96–100; BMI 23.0
[2020-10-15] MEDS: LACTATED RINGERS 1,000 ML 42 ML IV (07:31)
--- NOTE | 2020-10-15 07:40 | P.HP_ITS ---
History of Present Illness History of Present Illness Date Patient Seen: 10/15/20 Time Patient Seen: 07:40 Chief complaint: [facility] [place] Narrative: 75M history of tonsil cancer sp chemotherapy. He has completed therapy via right chest port a cath refered now for port a cath removal. No port related issues. Feeling well without complaint. Patient History Medical History Edema (10/06/11) Elevated PSA Essential hypertension (10/06/11) Hypertension Recurrent major depressive disorder, in full remission (10/06/11) Surgical History History of surgery on upper extremity (~1953) Family & Social History Family History Mother Pancreatic cancer Thyroid cancer Gallstones Father Prostate cancer Social History: household members spouse lives independently Yes caregiver/support person No Tobacco & Substance use: Tobacco type cigarettes,pipe,cigars Smoking Status Former smoker alcohol intake current alcohol intake frequency a few times a month Substance Use Type does not use Meds Home Medications and Allergies Home Medications Medication Instructions Recorded Confirmed Type Disabled Parking #1 each 08/08/18 06/19/20 Rx Tylenol 500 mg PRN PRN 11/07/19 10/15/20 History acetaminophen [Tylenol] 650 mg PO QID PRN #60 cap 11/07/19 10/15/20 Rx lamotrigine 100 mg tablet 100 mg PO DAILY #90 tab 12/25/19 10/15/20 Rx mecobalamin (vitamin B12) 2,000 mcg PO DAILY #100 tab 09/10/20 Rx atenolol 50 mg tablet 50 mg PO DAILY #90 tab 09/19/20 10/15/20 Rx Allergies Allergy/AdvReac Type Severity Reaction Status Date / Time Penicillins [PENICILLINS] Allergy Mild A CHILD Verified 10/15/20 07:08 Review of Systems Review of Systems Narrative: A 10 point review of systems is negative except as noted in the HPI Exam Vital Signs (past 8 hours): - 10/15/20 07:32 Temperature 99.0 F Pulse Rate 78 Respiratory Rate 14 Blood Pressure 130/73 Pulse Oximetry 98 Oxygen Delivery Method Room Air Narrative Exam Narrative: General-no acute distress, thin male Chest- non labored respirations, clear to auscultation bilaterally Cardiac-regular rate no peripheral edema Abdomen-soft, nontender, non distended Extremities-warm, well perfused Neurological-alert and oriented, no focal deficits Assessment & Plan Assessment & Plan narrative: 75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 Technical details discussed. Procedural risks including bleeding, infection, air embolism damage to surrounding structures discussed. Questions answered and in agreement with this plan.
[2020-10-15] MEDS: CLINDAMYCIN 900 MG/50 ML PIGGYBACK 50 MG IV (07:47)
--- NOTE | 2020-10-15 08:00 | SUR.OPER ---
Supine on padded OR bed, head on pillow, arms padded and tucked at sides, legs uncrossed, safety belt at thigh, tape over blanket over lower legs .
[2020-10-15] MEDS: BUPIVACAINE 0.25% (PF) VIAL 30 ML INJ (08:05)
--- NOTE | 2020-10-15 08:31 | PM.OP.1 ---
Operative Date/Time/Diagnoses Date of procedure: 10/15/20 Time of procedure: 08:31 Pre-op diagnosis: port a cath Post-op diagnosis: same Procedure & Clinicians Procedure: removal of port a cath Same procedure as scheduled: Yes Indications: 75M with tonsil cancer completed chemotherapy here for port a cath removal Surgeon: Kishor Solis Anesthesia Type: MAC +/- Operative Notes Findings: intact port a cath Specimen(s): none sent Estimated Blood Loss (mL): 10 Procedure in detail: Patient brought to the operating room placed supine on the table. Bilateral lower extremity compression devices were applied. She received 2 g of Ancef prior to skin incision. anesthesia was induced and she was intubated with an LMA. 0.25% bupivacaine was infiltrated in the skin overlying the Port-A-Cath. Incision with the knife was made through the skin and subcutaneous tissues. The Port-A-Cath was grasped and the anchoring sutures were removed. A Vicryl suture was then placed around the insertion site of the catheter and this was tied down at that same time that the catheter was withdrawn. The specimen was passed off the field. The wound was irrigated hemostasis was achieved. The subcutaneous tissue was reapproximated using Vicryl suture and skin closed with running Monocryl suture followed by Dermabond and Steri-Strips. Patient emerged from anesthesia and was transferred to the recovery room in stable condition. Complications: none Post-operative Condition: stable Disposition: same day surgery
== END 2020-10-15 09:07 | disposition home or self-care (01) ==
PROVIDERS: Family Provider Internal Medicine; PCP Internal Medicine; Referring Provider Surgery; Visit Provider Surgery
PROC: (CPT 36590; principal; 2020-10-15 07:45)
DX: Z45.2 Encounter for adjustment and management of vascular access device (principal); Z85.89 Personal history of malignant neoplasm of other organs and systems; I10 Essential (primary) hypertension
CPT/HCPCS: 36590; J2250; J2405; J2704; J3010

== ENCOUNTER → 2024-04-24 12:36 | Outpatient (CLI) | payer MEDICARE, MEDICAID, SELFPAY ==
--- NOTE | 2024-04-24 12:37 | DI.ECHO.S_ITS ---
[facility] +---------+ [facility] : : [address] : : [place] : : [id number] : : Phone: [phone] Echocardiogram Report + + :Name: LISA SPANGLER Study Date: 04/24/2024 Height: 67.5 in: :[facility] ReadingLocation: Weight: 162 lb : : Gender: Male BSA: 1.9 m2 : :: 1945 Age: 78 yrs BP: 133/83 mmHg: :Reason For Study: MURMUR : :Ordering Physician: VIKTORIYA, : :DONNA Romero Performed By: Saloni Lewis : :Referring: DONNA SADLER : + + Interpretation Summary Normal left ventricle size with ejection fraction 55-60%. The left atrium is mildly dilated. Mild tricuspid regurgitation. The right ventricular systolic pressure is estimated to be at least 36 mmHg based on an estimated right atrial pressure of 8 mm Hg. Comparison is made with the echocardiogram of 01/15/2020, no significant change. Procedure: A two-dimensional transthoracic echocardiogram with color flow and Doppler was performed. The study quality was technically adequate. Comparison is made with the echocardiogram of 01/15/2020. The patient was in sinus rhythm with heart rates between 63-77 bpm during the exam. Left Ventricle: The left ventricle is normal in size and wall thickness. The ejection fraction is estimated to be 55-60%. There are no focal wall motion abnormalities. Diastolic parameters suggest probable normal left ventricular diastolic function and normal filling pressures. Right Ventricle: The right ventricle grossly appears normal in size with probable normal systolic function. Atria: The left atrium is mildly dilated. Right atrial size is normal. There is no Doppler evidence for an interatrial shunt. Mitral Valve: There is a flat closure plane of the the mitral valve leaflets. There is trace mitral regurgitation. Aortic Valve: The aortic valve is trileaflet. The aortic valve opens well. There is no aortic valve stenosis. No aortic regurgitation is present. Tricuspid Valve: The tricuspid valve is normal in structure and function. There is mild tricuspid regurgitation. The right ventricular systolic pressure is estimated to be at least 36 mmHg based on an estimated right atrial pressure of 8 mm Hg. Pulmonic Valve: The pulmonic valve leaflets are thin and pliable; valve motion is normal. There is mild pulmonic regurgitation. Great Vessels: The aortic root is normal size. The ascending aorta is at the upper limits of normal in size. The IVC is dilated (diameter is greater than 2.1 cm) yet it collapses greater than 50% with a sniff. This suggests a right atrial pressure of 8 mm Hg. Pericardium/ Pleura There is no pericardial effusion. There is no pleural effusion. MMode/2D Measurements & Calculations LVIDd: 4.9 cm LVOT diam: 2.0 cm LVIDs: 3.2 cm Ao root diam: 3.6 cm FS: 35.3 % asc Aorta Diam: 4.0 cm EPSS: 0.58 cm Ao Arch Diam (Prox Trans): 2.3 cm IVSd: 0.92 cm LVPWd: 0.83 cm LV hansen. diameter/BSA (cm/m^2): 2.6 LV sys. diameter/BSA (cm/m^2): 1.7 LA A2 area: 26.8 cm2 RA long axis: 4.5 cm LA A4 area: 15.4 cm2 RA area: 16.4 cm2 LA length (vol): 4.8 cm RA vol: 51.1 ml LA vol: 72.0 ml RA : 27.5 ml/m2 LA vol index: 38.7 ml/m2 IVC diam: 2.6 cm RVD1 (basal): 4.2 cm TAPSE: 2.4 cm Doppler Measurements & Calculations Ao V2 max: 138.7 cm/sec LVOT Max Abhilash: 97.4 cm/sec Ao V2 mean: 99.0 cm/sec LV V1 max P.8 mmHg Ao max P.7 mmHg LV V1 VTI: 20.8 cm Ao mean P.2 mmHg DIANNA(I,D): 2.0 cm2 Ao V2 VTI: 33.1 cm DIANNA(V,D): 2.2 cm2 sev ratio: 0.63 DIANNA indexed to BSA (cm^2/m^2): 1.1 MV E max abhilash: 68.5 cm/sec TR max abhilash: 265.7 cm/sec MV A max abhilash: 54.9 cm/sec TR max P.2 mmHg MV E/A: 1.2 PA V2 max: 87.2 cm/sec Med Peak E' Abhilash: 7.7 cm/sec PA V2 mean: 63.2 cm/sec E/E' med: 8.9 PA mean P.7 mmHg Lat Peak E' Abhilash: 7.6 cm/sec PA pr(Accel): 43.0 mmHg E/E' lat: 9.0 E/e' average: 9.0 MV dec time: 0.24 sec SVLVOT): 66.5 ml Electronically signed by: Liseth Goss on [place] Physician:04/24/2024 03:51 PM
== END ==
PROVIDERS: Family Provider Internal Medicine; PCP Internal Medicine; Referring Provider Internal Medicine; Visit Provider Internal Medicine
DX: R01.1 Cardiac murmur, unspecified (principal); I07.1 Rheumatic tricuspid insufficiency
CPT/HCPCS: 93306

== ENCOUNTER → 2024-05-17 10:23 | Outpatient (CLI) | payer MEDICARE, MEDICAID, SELFPAY ==
--- NOTE | 2024-05-17 10:24 | DI.RAD.S_ITS ---
PROCEDURE: XR LUMBAR SPINE 2-3V INDICATIONS: Rule out fracture, dislocation, pathology TECHNIQUE: 3 views of the lumbar spine were acquired. COMPARISON: None. FINDINGS: Bones: 5 [id number] vertebrae are present. Mild leftward curvature of the lumbar spine. Loss of normal lumbar lordosis. Grade 1 retrolisthesis of L2 on L3, L3 on L4, L4 on L5. Multilevel disc space narrowing and endplate osteophyte formation, as well as facet hypertrophy. No vertebral body compression fractures. No suspicious bony lesions. Soft tissues: Overlying bowel gas pattern is normal. No suspicious soft tissue calcifications. IMPRESSION: 1. Degenerative disc and facet disease. 2. No acute fracture. No osseous lesion. If symptoms and/or clinical suspicion for pathology persist, further assessment with repeat, or advanced imaging (e.g., CT, MRI, or bone scan) may be helpful for further assessment. Dictated by: Mirlande Elias M.D. on 05/17/2024 at 14:58 Approved by: Mirlande Elias M.D. on 05/17/2024 at 15:00
--- NOTE | 2024-05-17 10:24 | DI.RAD.S_ITS ---
PROCEDURE: XR CERVICAL SPINE 2V OR 3V INDICATIONS: Rule out fracture, dislocation, pathology TECHNIQUE: 3 view(s) of the cervical spine were acquired. COMPARISON: None. FINDINGS: Bones: No fractures or dislocations to the T1 level. The lateral masses of C1 appear intact on the odontoid view. No suspicious bony lesions. Multilevel disc space narrowing and endplate osteophyte formation, as well as facet hypertrophy. Soft tissues: No prevertebral soft tissue swelling. IMPRESSION: 1. Degenerative disc and facet disease. 2. No acute fracture. No osseous lesion. If symptoms and/or clinical suspicion for pathology persist, further assessment with repeat, or advanced imaging (e.g., CT, MRI, or bone scan) may be helpful for further assessment. Dictated by: Mirlande Elias M.D. on 05/17/2024 at 14:56 Approved by: Mirlande Elias M.D. on 05/17/2024 at 14:57
--- NOTE | 2024-05-17 10:24 | DI.RAD.S_ITS ---
PROCEDURE: XR THORACIC SPINE 2V INDICATIONS: Rule out fracture, dislocation, pathology TECHNIQUE: 2 views of the thoracic spine were acquired. COMPARISON: None. FINDINGS: Bones: No fractures or dislocations. No suspicious bony lesions. Visualized ribs are intact. Multilevel disc space narrowing and endplate osteophyte formation, as well as facet hypertrophy. Soft tissues: No paravertebral stripe thickening. IMPRESSION: No acute fracture. No osseous lesion. If symptoms and/or clinical suspicion for pathology persist, further assessment with repeat, or advanced imaging (e.g., CT, MRI, or bone scan) may be helpful for further assessment. Dictated by: Mirlande Elias M.D. on 05/17/2024 at 14:57 Approved by: Mirlande Elias M.D. on 05/17/2024 at 14:58
== END ==
LOC: RAD 10:24
PROVIDERS: Family Provider Internal Medicine; PCP Internal Medicine; Referring Provider Internal Medicine; Visit Provider Internal Medicine
DX: M47.812 Spondylosis without myelopathy or radiculopathy, cervical region (principal); M50.30 Other cervical disc degeneration, unspecified cervical region; M47.814 Spondylosis without myelopathy or radiculopathy, thoracic region; M47.816 Spondylosis without myelopathy or radiculopathy, lumbar region; M51.36 Other intervertebral disc degeneration, lumbar region
CPT/HCPCS: 72040; 72070; 72100

== ENCOUNTER → 2024-05-25 10:36 | Outpatient (CLI) | payer MEDICARE, MEDICAID, SELFPAY ==
[2024-05-25 11:56] LABS: Alanine Aminotransferase 14 IU/L (<50); Albumin 4.2 g/dL (3.5-5.0); Albumin Globulin Ratio 1.3 (1.0-2.8); Alkaline Phosphatase 76 U/L (38-126); Aspartate Aminotransferase 33 IU/L (17-59); BUN Creatinine Ratio 15.6 (6-22); Bilirubin Total 0.7 mg/dL (0.2-1.3); Blood Urea Nitrogen 23 mg/dL (9-20); Calcium 9.4 mg/dL (8.4-10.2); Carbon Dioxide 30 mmol/L (22-32); Chloride 99 mmol/L (98-107); Cholesterol 184 mg/dL (140-199); Estimated Glomerular Filt Rate 48 mL/min (>60); Globulin 3.2 g/dL (1.7-4.1); Glucose 97 mg/dL (80-110); HDL Cholesterol 57 mg/dL (40-60); HEMOLYSIS < 15 (0-50); LDL Cholesterol Calculated 114 mg/dL (<100); Potassium 4.3 mmol/L (3.4-5.1); Sodium 137 mmol/L (137-145); Total Protein 7.4 g/dL (6.3-8.2); Triglycerides 63 mg/dL (35-150)
[2024-05-25 12:44] LABS: Vitamin B12 > 1000 pg/mL (239-931)
== END ==
PROVIDERS: Family Provider Internal Medicine; PCP Internal Medicine; Referring Provider Internal Medicine; Visit Provider Internal Medicine
DX: I10 Essential (primary) hypertension (principal); C09.9 Malignant neoplasm of tonsil, unspecified; E53.8 Deficiency of other specified B group vitamins
CPT/HCPCS: 36415; 80053; 80061; 82607

== ENCOUNTER 2025-06-08 15:35 | Observation (INO) | payer MEDICARE, MEDICAID, SELFPAY ==
[2025-06-08 15:45] VITALS: BP 127/59; PULSE 76; RESP 17; TEMP 37; O2SAT 96; BMI 20.9
--- NOTE | 2025-06-08 16:10 | DI.CT.S_ITS ---
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 Sagittal and coronal reformats were then constructed. For radiation dose reduction, the following was used: automated exposure control, adjustment of mA and/or kV according to patient size. COMPARISON: None. FINDINGS: Image quality: Diagnostic Bones: Large osteophytes are seen anteriorly from C4-C6. Moderate to severe cervical spondylosis. No displaced fracture or traumatic subluxation is seen. Soft tissues: Upper lung fibrotic changes are partially seen. No apical pneumothorax. There are vascular calcifications. IMPRESSION: No displaced fracture or traumatic subluxation. Moderate to severe cervical spondylosis. If there is high concern for further derangement, consider MRI evaluation. Dictated by: Jamari Martínez M.D. on 06/08/2025 at 17:56 Approved by: Jamari Martínez M.D. on 06/08/2025 at 17:57
--- NOTE | 2025-06-08 16:10 | DI.CT.S_ITS ---
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 For radiation dose reduction, the following was used: automated exposure control, adjustment of mA and/or kV according to patient size. COMPARISON: None. FINDINGS: Image quality: Diagnostic CSF spaces: Basal cisterns are patent. Lateral ventricles are symmetric. Volume: Vascular calcifications. Periventricular white matter disease is commonly seen with chronic microangiopathy. Volume loss is present. These findings are [id number] Brain: No acute hemorrhage. No gross loss of alfaro-white differentiation. Craniofacial structures: No significant paranasal sinus opacity. IMPRESSION: No acute intracranial pathology. Dictated by: Jamari Martínez M.D. on 06/08/2025 at 17:55 Approved by: Jamari Martínez M.D. on 06/08/2025 at 17:55
--- NOTE | 2025-06-08 16:11 | DI.CT.S_ITS ---
PROCEDURE: CT PEL WO CON INDICATIONS: left hip pain, non-ambulatory x 4 days S/P fall onto hip TECHNIQUE: Noncontrast 3 mm axial sections acquired through the bony pelvis, with coronal and sagittal reformatting. COMPARISON: None. FINDINGS: Image quality: Diagnostic Bones: There is a minimally displaced fracture at the greater trochanter. This is best seen on series 6. No displaced femoral neck fracture identified. Old bone fragment adjacent to the superior acetabulum. No pubic diastasis. No hip dislocation. Sacroiliac ankylosis. No sacroiliac dislocation. Background flwq-ji-feifghct degenerative changes. Soft tissues: There is a large left inguinal hernia containing bowel. IMPRESSION: Mildly displaced left greater trochanter fracture. Large left inguinal hernia containing bowel. Dictated by: Jamari Martínez M.D. on 06/08/2025 at 17:53 Approved by: Jamari Martínez M.D. on 06/08/2025 at 17:54
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
[2025-06-08 17:29] LABS: Add Manual Diff / Slide Review NO; Hematocrit 32.6 % (41-53); Hemoglobin 11.3 g/dL (13.5-17.5); Lymphocytes Absolute Auto 300 /uL (1100-4500); Mean Corpuscular HGB Conc 34.5 % (30-36); Mean Corpuscular Hemoglobin 29.8 PG (26-34); Mean Corpuscular Volume 86.2 fL (80-100); Platelet Count 192 X10^3/uL (150-400)
[2025-06-08 17:45] LABS: Alanine Aminotransferase 24 IU/L (<50); Albumin 4.1 g/dL (3.5-5.0); Albumin Globulin Ratio 1.2 (1.0-2.8); Alkaline Phosphatase 86 U/L (38-126); Blood Urea Nitrogen 20 mg/dL (9-20); Calcium 8.7 mg/dL (8.4-10.2); Carbon Dioxide 31 mmol/L (22-32); Chloride 95 mmol/L (98-107); Creatine Kinase 231 U/L (55-170); Estimated Glomerular Filt Rate > 60 mL/min (>60); Globulin 3.5 g/dL (1.7-4.1); Glucose 86 mg/dL (70-99); HEMOLYSIS < 15 (0-50); Potassium 3.8 mmol/L (3.4-5.1); Sodium 132 mmol/L (137-145); Total Protein 7.6 g/dL (6.3-8.2)
[2025-06-08 17:55] LABS: NT-proBNP (BNP-Adult 18+) 1820 pg/mL (<450)
[2025-06-08 17:57] LABS: Troponin I < 0.012 ng/mL (0.01-0.034)
--- NOTE | 2025-06-08 18:09 | DI.RAD.S_ITS ---
PROCEDURE: XR CHEST 1V INDICATIONS: CHF, elevated BNP TECHNIQUE: One view of the chest was acquired. COMPARISON: [facility], CR, XR CHEST 1V, 11/07/2019, 16:49. FINDINGS AND IMPRESSION: No dense airspace disease or pleural effusions. Mild interstitial prominence, possibly edema given provided history, versus atypical infection. Normal heart size. Aortic calcifications. Degenerative osseous findings. Dictated by: Jamari Martínez M.D. on 06/08/2025 at 18:38 Approved by: Jamari Martínez M.D. on 06/08/2025 at 18:38
--- NOTE | 2025-06-08 18:33 | PM.HP.1 ---
History of Present Illness History of Present Illness Date Patient Seen: 06/08/25 Time Patient Seen: 18:33 Chief complaint: Falls, Back Pain, L hip Injury, Fatigue Narrative: This is an 79 year old male with [facility] Medical History (Updated 06/08/25 @ 18:37 by Adalberto Camarillo MD) Inguinal hernia of left side without obstruction or gangrene Vitamin B12 deficiency Squamous cell carcinoma of left tonsil Left inguinal hernia Elevated PSA Edema (10/06/11) Essential hypertension (10/06/11) Recurrent major depressive disorder, in full remission (10/06/11) Surgical History S/P cataract extraction (~09/2020) History of surgery on upper extremity (~1952) Family History Mother Pancreatic cancer Thyroid cancer Gallstones Father Prostate cancer Social History marital status: number of children: 4 household members: spouse lives independently: Yes caregiver/support person: No housing: house pets and animals: No education level: other (Graduate school after [employer]) occupational status: other (Retired) Previous occupational history: [employer] in [place] travel history: over 6 months ago (2002 for 5 months) leisure activities: fishing Smoking Status: Former smoker Tobacco: How many years used: 15 Smokeless tobacco user: other (Cigarettes, pipe, cigars) quit status: quit date established (1980) second hand exposure: No alcohol intake: current substance use type: does not use Meds Home Medications and Allergies Home Medications ?Medication ?Instructions ?Recorded ?Confirmed ?Type vit C 250 mg-vit E 90 mg-zinc 40 1 tab PO DAILY 10/28/21 04/20/25 History mg-copper 1 [id number] capsule (PreserVision AREDS-2) mecobalamin (vitamin B12) 1 ml IM QMONTH 04/02/23 04/20/25 History Disabled Parking #1 ea 06/10/23 04/20/25 Rx atenolol 50 mg tablet 50 mg PO DAILY #90 tabs 06/08/24 04/20/25 Rx lamotrigine 100 mg tablet 100 mg PO DAILY #90 tabs 06/08/24 04/20/25 Rx cholecalciferol (vitamin D3) 250 250 mcg PO QWEEK 04/20/25 04/20/25 History mcg (10,000 unit) capsule Allergies Allergy/AdvReac Type Severity Reaction Status Date / Time Penicillins (PENICILLINS) Allergy Mild A CHILD Verified 06/08/25 15:45 Exam Vital Signs (past 8 hours): - 06/08/25 15:45 Temperature 98.6 F Pulse Rate 76 Respiratory Rate 17 Blood Pressure 127/59 L Pulse Oximetry 96 Oxygen Delivery Method Room Air Oxygen Delivery Method Room Air Objective Labs 06/08/25 16:55 06/08/25 16:55 Labs: Laboratory Results - last 24 hr 06/08/25 16:55 WBC 4.1 L RBC 3.78 L Hgb 11.3 L Hct 32.6 L MCV 86.2 MCH 29.8 MCHC 34.5 RDW 13.5 Plt Count 192 Neut % (Auto) 78.6 H Lymph % (Auto) 7.1 L [place] % (Auto) 12.6 Eos % (Auto) 1.2 L Baso % (Auto) 0.5 Neut # (Auto) 3200 Lymph # (Auto) 300 L [place] # (Auto) 500 Eos # (Auto) 0 Baso # (Auto) 0 Sodium 132 L Potassium 3.8 Chloride 95 L Carbon Dioxide 31 BUN 20 Creatinine 0.87 Estimated GFR > 60 BUN/Creatinine Ratio 23.0 H Glucose 86 Calcium 8.7 Total Bilirubin 0.6 AST 46 ALT 24 Alkaline Phosphatase 86 Total Creatine Kinase 231 H Troponin I < 0.012 NT-Pro-B Natriuret Pep 1820 H Total Protein 7.6 Albumin 4.1 Globulin 3.5 Albumin/Globulin Ratio 1.2 Assessment & Plan Assessment & Plan narrative: Left Inguinal Hernia Time-Based Coding :: [TOTAL MINUTES] spent with patient and on the chart (including review of chart, obtaining history, exam, reviewing outside data, placing orders, documenting exam and treatment plan, and counseling patient) on [DATE].
[2025-06-08 18:58] VITALS: BP 139/68; PULSE 60; RESP 18; O2SAT 99
[2025-06-08 19:31] LABS: Appearance Urine UA CLEAR; Bilirubin Urine UA NEGATIVE (NEGATIVE); Color Urine UA YELLOW; Glucose Urine UA NEGATIVE (Negative); Ketones Urine UA NEGATIVE (NEGATIVE); Leukocyte Esterase Urine UA NEGATIVE (NEGATIVE); Nitrite Urine UA NEGATIVE (Negative); Occult Blood Urine UA NEGATIVE (Negative); Protein Urine UA NEGATIVE (Negative); Specific Gravity Urine UA 1.010 (1.000-1.035); Urobilinogen Urine UA 1.0 E.U./dL (0.2); pH Urine UA 7.5 (4.5-8.0)
[2025-06-08 19:39] LABS: Culture Indicated Urine Cult Not Indicated
--- NOTE | 2025-06-08 19:47 | PM.HP.IH.1 ---
History of Present Illness History of Present Illness Date Patient Seen: 06/09/25 Time Patient Seen: 09:35 Chief complaint: Falls, Back Pain, L hip Injury, Fatigue Narrative: 79-year-old male who lives at home previously independent has a history of hypertension squamous cell carcinoma of the head and neck hernia B12 deficiency and heart failure. Patient apparently had a fall on Wednesday at home. Since that time he has been having discomfort with mobility. And has been ambulating less and less. Patient's children live out of town. They have been in contact with patient and noticed that he had not been moving much so came home and reported that he was having difficulty with walking and brought to the emergency department. Patient states that he is having increasing difficulty with walking over the number of months. In his balance has not been what it she been previously. Patient has also had some falls before this 1. His main complaint is left hip pain. It is worse when he tries to bear weight. Pain is on the outside of his hip.. Patient lives at home with his who has dementia and provides caregiving. Patient is doing well this morning quite chatty. Not complain of pain difficulty with walking. He is more worried about his who has dementia and he provides caregiving support. ON LICENSE OF [facility] Medical History (Updated 06/08/25 @ 19:09 by Mili Fernandez PA-C) Inguinal hernia of left side without obstruction or gangrene Vitamin B12 deficiency Squamous cell carcinoma of left tonsil Left inguinal hernia Elevated PSA Edema (10/06/11) Essential hypertension (10/06/11) Recurrent major depressive disorder, in full remission (10/06/11) Surgical History S/P cataract extraction (~09/2020) History of surgery on upper extremity (~1952) Family History Mother Pancreatic cancer Thyroid cancer Gallstones Father Prostate cancer Social History marital status: number of children: 4 household members: spouse lives independently: Yes caregiver/support person: No housing: house pets and animals: No education level: other (Graduate school after [employer]) occupational status: other (Retired) Previous occupational history: [employer] in [place]: Religion travel history: over 6 months ago (2002 for 5 months) leisure activities: fishing Smoking Status: Former smoker Tobacco: How many years used: 15 Smokeless tobacco user: other (Cigarettes, pipe, cigars) quit status: quit date established (1980) second hand exposure: No alcohol intake: current substance use type: does not use Meds Home Medications and Allergies Home Medications ?Medication ?Instructions ?Recorded ?Confirmed ?Type vit C 250 mg-vit E 90 mg-zinc 40 1 tab PO DAILY 10/28/21 06/08/25 History mg-copper 1 [id number] capsule (PreserVision AREDS-2) mecobalamin (vitamin B12) 1 ml IM QMONTH 04/02/23 06/08/25 History Disabled Parking #1 ea 06/10/23 06/08/25 Rx atenolol 50 mg tablet 50 mg PO DAILY #90 tabs 06/08/24 06/08/25 Rx lamotrigine 100 mg tablet 100 mg PO DAILY #90 tabs 06/08/24 06/08/25 Rx cholecalciferol (vitamin D3) 250 250 mcg PO QWEEK 04/20/25 06/08/25 History mcg (10,000 unit) capsule Allergies Allergy/AdvReac Type Severity Reaction Status Date / Time Penicillins (PENICILLINS) Allergy Mild A CHILD Verified 06/08/25 15:45 Exam Vital Signs (past 8 hours): - 06/08/25 15:45 06/08/25 18:58 Temperature 98.6 F Pulse Rate 76 60 Respiratory Rate 17 18 Blood Pressure 127/59 L 139/68 Pulse Oximetry 96 99 Oxygen Delivery Method Room Air Room Air Oxygen Delivery Method Room Air Narrative Exam Narrative: Gen.: Alert no apparent distress HEENT: Pupils equal round and reactive or mucosa is moist neck is supple Cardio: S1-S2 regular rate and rhythm Respiratory: Normal respiratory effort lungs are clear Abdomen: Soft nontender no distention Extremities: Lower extremity edema mild warm dry perfused Objective Labs 06/09/25 05:33 06/09/25 05:33 Labs: Laboratory Results - last 24 hr 06/08/25 06/08/25 16:55 19:12 WBC 4.1 L RBC 3.78 L Hgb 11.3 L Hct 32.6 L MCV 86.2 MCH 29.8 MCHC 34.5 RDW 13.5 Plt Count 192 Neut % (Auto) 78.6 H Lymph % (Auto) 7.1 L [place] % (Auto) 12.6 Eos % (Auto) 1.2 L Baso % (Auto) 0.5 Neut # (Auto) 3200 Lymph # (Auto) 300 L [place] # (Auto) 500 Eos # (Auto) 0 Baso # (Auto) 0 Sodium 132 L Potassium 3.8 Chloride 95 L Carbon Dioxide 31 BUN 20 Creatinine 0.87 Estimated GFR > 60 BUN/Creatinine Ratio 23.0 H Glucose 86 Calcium 8.7 Total Bilirubin 0.6 AST 46 ALT 24 Alkaline Phosphatase 86 Total Creatine Kinase 231 H Troponin I < 0.012 NT-Pro-B Natriuret Pep 1820 H Total Protein 7.6 Albumin 4.1 Globulin 3.5 Albumin/Globulin Ratio 1.2 Urine Color Yellow Urine Appearance Clear Urine pH 7.5 Ur Specific [place] 1.010 Urine Protein Negative Urine Glucose (UA) Negative Urine Ketones Negative Urine Occult Blood Negative Urine Nitrate Negative Urine Bilirubin Negative Urine Urobilinogen 1.0 Ur Leukocyte Esterase Negative Urine RBC 0-1/hpf Urine WBC 0-1/hpf Ur Squamous Epith Cells 0-1 /hpf Urine Bacteria None seen Ur Culture Indicated? Cult not indicated Vol Urine Centrifuged 10ml (spun) Assessment & Plan Assessment and plan (1) Closed trochanteric fracture of hip: Qualifiers: Encounter type: initial encounter Laterality: left Qualified Code(s): S72.102A - Unspecified trochanteric fracture of left femur, initial encounter for closed fracture Status: Acute Plan Mild displaced left greater trochanteric fracture. Apparently orthopedic surgery has been consulted in the emergency department. They will evaluate the patient. See if he is a surgical candidate. Patient is having no pain. Difficulty with ambulating. Patient is a primary caregiver at home with his who has dementia. Frequent falls. Patient with frequent falls. He says he has gotten older his balance has become poor. I do not see any indications of cardiac or neurological compromise that it is causing falls at this point. Continue to monitor work with physical therapy. Squamous cell carcinoma of head and neck. Status post treatment 5 years ago. Currently being monitored by Oncology. Getting vitamin B12 and iron infusions for anemia. Chronic and stable. Hypertension. Patient is on home blood pressure medication and this will be continued. Vitamin B12 deficiency continue with vitamin B12 placement. Mood disorder patient with unspecified mood disorder he is on Lamictal 100 mg a day and this will be continued during his hospital stay. DVT prophylaxis continue with Lovenox Disposition and plan. Orthopedic consultation for management of hip. If surgery is required. EKG was reviewed. Continue with atenolol. Lovenox. No contraindications at this point for surgery if anticipated. Time-Based Coding :: [TOTAL MINUTES] spent with patient and on the chart (including review of chart, obtaining history, exam, reviewing outside data, placing orders, documenting exam and treatment plan, and counseling patient) on [DATE]. PROFEE Tnt Line Supervisor Document charge(s): Yes Charge Codes Initial inpatient/observation care: [id number]
[2025-06-08 20:03] VITALS: BMI 21.9
[2025-06-08 20:16] VITALS: BP 120/57; PULSE 64; RESP 18; TEMP 36.1; O2SAT 96
[2025-06-09 04:10] VITALS: BP 121/55; PULSE 61; RESP 18; TEMP 36.1; O2SAT 97
[2025-06-09 06:08] LABS: Add Manual Diff / Slide Review NO; Hematocrit 30.3 % (41-53); Hemoglobin 10.5 g/dL (13.5-17.5); Lymphocytes Absolute Auto 400 /uL (1100-4500); Mean Corpuscular HGB Conc 34.8 % (30-36); Mean Corpuscular Hemoglobin 30.0 PG (26-34); Mean Corpuscular Volume 86.3 fL (80-100); Platelet Count 183 X10^3/uL (150-400)
[2025-06-09 06:21] LABS: Blood Urea Nitrogen 19 mg/dL (9-20); Calcium 8.4 mg/dL (8.4-10.2); Carbon Dioxide 30 mmol/L (22-32); Chloride 98 mmol/L (98-107); Estimated Glomerular Filt Rate > 60 mL/min (>60); Glucose 84 mg/dL (70-99); HEMOLYSIS < 15 (0-50); Potassium 3.7 mmol/L (3.4-5.1); Sodium 131 mmol/L (137-145)
[2025-06-09] MEDS: ENOXAPARIN 40 MG/0.4 ML SYRINGE SUBCUT (09:57)
[2025-06-09] MEDS: SODIUM CHLORIDE 0.9% FLUSH 10 ML IV ×2 (09:57→21:43)
[2025-06-09] MEDS: CYANOCOBALAMIN 1,000 MCG/ML VIAL 1000 MCG IM (10:02)
--- NOTE | 2025-06-09 10:23 | PT-IP ANOTE ---
PT eval order received. Pt with L greater trochanter fx and is pending ortho consult. Per ED note: Per Dr. Thomas: possibly non-surgical but will consult with pt more when admitted. Will hold PT eval order at this time until ortho consult completed to determine pt's weight bearing status and precautions.
[2025-06-09] MEDS: ACETAMINOPHEN 325 MG TABLET 650 MG PO (11:37)
[2025-06-09 12:00] VITALS: BP 108/61; PULSE 60; RESP 17; TEMP 35.9; O2SAT 99
--- NOTE | 2025-06-09 12:18 | CM.DANOTE ---
Addendum entered by DARREL Starr 06/09/25 15:34: ADD: Pt's brother, his emergency contact, Charanjit asked to talk to SW by pt room and updated that spouse Ninfa has fairly advanced dementia and mostly bed bound and does require assist with ADLs and brother feels pt and spouse have been managing as best they can but feels pt has not been able to adequately care for spouse at home and now with hip fx feels spouse needs to transition into LTC/Memory Care. Brother states they do not have the financial means to privately pay but that maybe son and DIL can assist with getting spouse into Respite Care for a month while working on her LTC plan. SW explained main process is determining what the patient needs to safely discharge the hospital after working with PT and then family will need to work on contacting [facility] who pt has been working with towards process of LTC in a facility. Per Ortho Surgeon, surgery not recommended and can WBAT. PT eval pending to determine discharge needs. BF Original Note: Patient is an 79 yo male who was admitted OBS Status on 06/08/25 after GLF with hip fx, awaiting Ortho Consult. Pt has [facility] and [facility] for insurance and his PCP is Dr. Dwayne Ibarra at [facility]. EMR was reviewed. Per MD, pt with hx of CHF, hypertension, squamous cell carcinoma and had GLF with hip fx a few days ago and family came up to visit pt and brought him to ED due to pain and lack of mobility. Ortho Consult pending to determine conservative vs surgical intervention. PT pending Ortho Consult. CLEMENT met bedside with pt and explained role and he confirms that he and his live at home near [facility] and pt is independent at baseline and primary CG to his spouse with advancing dementia. Pt states over the past 4 years of providing CG support to his demented spouse, pt has become more housebound due to difficulty with spouse leaving the home and has become more sedentary. Pt states his curvature to his spine has also increased which has led to multiple GLFs from balance issues. Pt denies any hx of HH or SNF for himself. Pt states he has worked closely with [employer] and had Adult Day Health set up for spouse 2x a week but spouse did not do well and no longer an option but recently got a CG set up for every Wednesday for 4 hours and they have neighbor friends who were providing care for spouse once a week on Wednesdays from [id number] so pt could run errands and go to appointments etc.. The neighbor friends recently had their own health issues so this was not an option recently but just starting back up again as support. Pt hopeful that surgery is not needed so he can d/c home to continue providing care for his demented spouse but aware he will also need to be able to mobilize. Pt has multiple adult children and will need to see how pt does with PT/OT to determine discharge planning needs. Plan: SW to follow closely for Ortho Consult and then PT eval to determine SNF vs home with HH so he can continue assisting spouse. Likely will need to discuss other family involvement for care of both pt and spouse at d/c. DARREL Starr Discharge Planning/Care Management CM Discharge Assessment Start: 06/08/25 19:55 Freq: Status: Active Protocol: Document 06/09/25 12:15 BF (Rec: 06/09/25 12:18 BF [id number]) Discharge Planning Assessment Assigned Discharge DARREL Christianson [employer] [place] Provider Dr. Dwayne Ibarra Insurance [facility] Insurance Comment UHC Medicare Advance Directives? No Advance Directives No on File History Provided By Patient,Medical Record Has Patient been No admitted in last 30 days? Prior Living House Arrangements Household Members spouse Type of Drives own vehicle transporation used prior to admit Independent with ADL Yes 's Is patient alert and Yes oriented? Caregiver for Yes: primary CG to spouse with dementia Another Comment Neighbor friends watch spouse once a week and just got [facility] CG Fridays for 4 hrs DME Already Rented / Cane Owned Patient/Family Intermediate Facility,Home with Home Health Preference Comment SNF vs HH pending Ortho consult and eventual PT eval Barriers to Yes Discharge Comment Pt wants home as he is primary CG to demented spouse Discharge Plan Home with Home Health Community Services Physical Therapy,Occupational Therapy,Home Health Aid, Home Health Nurse Transportation Likely family or friend to transport at d/c if safe for Arrangement home Additional Comment Pending Ortho Consult and then PT eval Whiteboard Updated Yes in Patient Room with name and ext. # of Metal Box Maker Review Status In Process Please Provide Date 06/09/25 Initial DC Assessment Was Performed Next Review Type Continued Stay Review
--- NOTE | 2025-06-09 13:40 | PM.HP.IH.1 ---
History of Present Illness History of Present Illness Date Patient Seen: 06/09/25 Time Patient Seen: 13:00 Chief complaint: Falls, Back Pain, L hip Injury, Fatigue Narrative: 79-year-old male who has left hip pain after a fall from his recliner 4 nights ago. He states that he was bending over to grab something when he fell onto his left side. He has had difficulty ambulating since this fall. He does state that he has been able to ambulate however it has been painful. He normally does not walk without any assistive devices. He denies pain elsewhere. Denies prior hip fracture. Physical exam reveals a well-developed well-nourished 79-year-old in no acute distress. Evaluation of his left lower extremity demonstrates that he has tenderness to palpation over his greater trochanter he does not have any knee tenderness to palpation his skin is intact. Distally he is neurovascularly intact in the saphenous, sural, deep peroneal, superficial peroneal and tibial nerve distributions. CT scan of his left hip demonstrates a nondisplaced greater trochanter fracture. [facility] Medical History (Updated 06/08/25 @ 19:09 by Mili Fernandez PA-C) Edema (10/06/11) Elevated PSA Essential hypertension (10/06/11) Inguinal hernia of left side without obstruction or gangrene Left inguinal hernia Recurrent major depressive disorder, in full remission (10/06/11) Squamous cell carcinoma of left tonsil Vitamin B12 deficiency Surgical History History of surgery on upper extremity (~1952) S/P cataract extraction (~09/2020) Family History Mother Pancreatic cancer Thyroid cancer Gallstones Father Prostate cancer Social History marital status: number of children: 4 household members: spouse lives independently: Yes caregiver/support person: No housing: house pets and animals: No education level: other (Graduate school after [employer]) occupational status: other (Retired) 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 travel history: over 6 months ago (2002 for 5 months) leisure activities: fishing Smoking Status: Former smoker Tobacco: How many years used: 15 Smokeless tobacco user: other (Cigarettes, pipe, cigars) quit status: quit date established (1980) second hand exposure: No alcohol intake: current substance use type: does not use Meds Home Medications and Allergies Home Medications ?Medication ?Instructions ?Recorded ?Confirmed ?Type vit C 250 mg-vit E 90 mg-zinc 40 1 tab PO DAILY 10/28/21 06/08/25 History mg-copper 1 [id number]-lywinl-[id number] capsule (PreserVision AREDS-2) mecobalamin (vitamin B12) 1 ml IM QMONTH 04/02/23 06/08/25 History Disabled Parking #1 ea 06/10/23 06/08/25 Rx atenolol 50 mg tablet 50 mg PO DAILY #90 tabs 06/08/24 06/08/25 Rx lamotrigine 100 mg tablet 100 mg PO DAILY #90 tabs 06/08/24 06/08/25 Rx cholecalciferol (vitamin D3) 250 250 mcg PO QWEEK 04/20/25 06/08/25 History mcg (10,000 unit) capsule Allergies Allergy/AdvReac Type Severity Reaction Status Date / Time Penicillins (PENICILLINS) Allergy Mild A CHILD Verified 06/08/25 15:45 Exam Vital Signs (past 8 hours): - 06/09/25 12:00 Temperature 96.6 F L Pulse Rate 60 Respiratory Rate 17 Blood Pressure 108/61 Pulse Oximetry 99 Oxygen Flow Rate 0 Oxygen Delivery Method Room Air Oxygen Flow Rate 0 Objective Labs 06/09/25 05:33 06/09/25 05:33 Labs: Laboratory Results - last 24 hr 06/08/25 06/08/25 06/09/25 16:55 19:12 05:33 WBC 4.1 L 3.4 L RBC 3.78 L 3.51 L Hgb 11.3 L 10.5 L Hct 32.6 L 30.3 L MCV 86.2 86.3 MCH 29.8 30.0 MCHC 34.5 34.8 RDW 13.5 13.2 Plt Count 192 183 Neut % (Auto) 78.6 H 70.5 Lymph % (Auto) 7.1 L 11.6 L [place] % (Auto) 12.6 14.1 H Eos % (Auto) 1.2 L 2.8 Baso % (Auto) 0.5 1.0 Neut # (Auto) 3200 2400 Lymph # (Auto) 300 L 400 L [place] # (Auto) 500 500 Eos # (Auto) 0 100 Baso # (Auto) 0 0 Sodium 132 L 131 L Potassium 3.8 3.7 Chloride 95 L 98 Carbon Dioxide 31 30 BUN 20 19 Creatinine 0.87 0.86 Estimated GFR > 60 > 60 BUN/Creatinine Ratio 23.0 H 22.1 H Glucose 86 84 Calcium 8.7 8.4 Total Bilirubin 0.6 AST 46 ALT 24 Alkaline Phosphatase 86 Total Creatine Kinase 231 H Troponin I < 0.012 NT-Pro-B Natriuret Pep 1820 H Total Protein 7.6 Albumin 4.1 Globulin 3.5 Albumin/Globulin Ratio 1.2 Urine Color Yellow Urine Appearance Clear Urine pH 7.5 Ur Specific [place] 1.010 Urine Protein Negative Urine Glucose (UA) Negative Urine Ketones Negative Urine Occult Blood Negative Urine Nitrate Negative Urine Bilirubin Negative Urine Urobilinogen 1.0 Ur Leukocyte Esterase Negative Urine RBC 0-1/hpf Urine WBC 0-1/hpf Ur Squamous Epith Cells 0-1 /hpf Urine Bacteria None seen Ur Culture Indicated? Cult not indicated Vol Urine Centrifuged 10ml (spun) Assessment & Plan Assessment and plan (1) Closed trochanteric fracture of hip: Qualifiers: Encounter type: initial encounter Laterality: left Qualified Code(s): S72.102A - Unspecified trochanteric fracture of left femur, initial encounter for closed fracture Status: Acute Plan From an orthopedic standpoint he can be weight-bearing as tolerated. Recommend physical therapy for assistance with ambulation. Recommend orthopedic follow up for assessment of fracture healing as an outpatient. Time-Based Coding :: [TOTAL MINUTES] spent with patient and on the chart (including review of chart, obtaining history, exam, reviewing outside data, placing orders, documenting exam and treatment plan, and counseling patient) on [DATE]. Quality VTE Deep Vein Thrombosis/Pulmonary Embolism Present on Admission: No IH PROFEE [employer] Coxswain Document charge(s): Yes
--- NOTE | 2025-06-09 15:25 | PT.IIE ---
Current Diagnoses Unspecified trochanteric fracture of left femur, initial encounter for closed fracture (06/08/25) Surgical History (Last Reviewed 06/08/25 @ 17:20 by Mili Fernandez PA-C) History of surgery on upper extremity (~1952) S/P cataract extraction (~09/2020) Medical History (Last Updated 06/08/25 @ 18:37 by Adalberto Camarillo MD) Edema (10/06/11) Elevated PSA Essential hypertension (10/06/11) Inguinal hernia of left side without obstruction or gangrene Left inguinal hernia Recurrent major depressive disorder, in full remission (10/06/11) Squamous cell carcinoma of left tonsil Vitamin B12 deficiency Physical Therapy Inpatient Evaluation/Re-Eval M1 PT/OT-IP Prior Functional Status Start: 06/09/25 17:02 Freq: NEEDED Status: Active Protocol: Document 06/09/25 15:25 AB (Rec: 06/09/25 17:21 AB Desktop) Medical Review Prior Functional Status Medical History Yes Reviewed Communication able to make needs known Mobility and Gait pt stated that he was modified independent with all mobilities and ambulation without AD; pt assists spouse with dementia; pt has had ~ 10 falls for the year already Social History Household Members spouse Living Arrangements House Number of Floors ( Two Floors Floors) Number of Stairs To pt stays on main level of the house and has a ramp to Enter/Railing? enter Home Environment Standard Height Toilet,Tub/Shower Home Equipment Raised Toilet Seat Without Armrests,Shower Seat without Backrest,Hand Held Shower,Lift Recliner Additional Social spouse with dementia and pt is the caregiver for his History Comment ; family lives out of state: stated that they are trying to get pt's 19/04 care pt has been sleeping on a lift recliner DIL stated that a FWW will not fit inside the house M2 PT-IP Current Condition Start: 06/09/25 17:02 Freq: NEEDED Status: Active Protocol: Document 06/09/25 15:25 AB (Rec: 06/09/25 17:21 AB Desktop) Physical Therapy Current Condition Current Condition Evaluation Date 06/09/25 Treatment Diagnosis fall; L hip fx; difficulty in walking Onset Date 06/08/25 M3 PT-IP Subjective Start: 06/09/25 17:02 Freq: NEEDED Status: Active Protocol: Document 06/09/25 15:25 AB (Rec: 06/09/25 17:21 AB Desktop) Subjective Physical Therapy Visit Type Type Initial Evaluation Visit Start Time 15:25 Visit Stop Time 16:25 Notes Talked to ortho Dr. Miguel and stated that pt is WBAT on LLE and with no precautions. Number of ESTHETICIAN PERMANENT MAKEUP ARTIST Visits 0 Physical Therapy Visit Comments Patient Comments agreeable to do PT Therapy Pain Assessment Pain When Pain Assessed During Mobility Pain Present Pain Present Pain Reported Location left hip Scale Used pain scale not stated Pain Behaviors Guarding Pain Management Distraction,Modification of Treatment,Re-positioning, Techniques Timing of Activity with Medications M4 PT-IP Mobility and Gait Start: 06/09/25 17:02 Freq: NEEDED Status: Active Protocol: Document 06/09/25 15:25 AB (Rec: 06/09/25 17:21 AB Desktop) PT-Bed Mobility Assessment Supine to Sit Supine to Sit Moderate Assistance,1 Person Assistance,Head of Bed Elevated PT-Transfer Assessment Sit to and From Stand Sit to and from Moderate Assistance,Maximum Assistance,1 Person Stand Assistance,Use of Upper Extremities Equipment Transfer Assistive Gait Belt,Front Wheeled Walker Device Transfers Transfer Destination Chair Transfer Technique ambulated Transfer Ability Level of Assist Moderate Assistance,Maximum Assistance,1 Person Assistance,Use of Upper Extremities Comments Mobility Comments pt in bed and family in room. obtained PLOF and home set up. pt with increase lateral leaning to the L in bed and cued to correct. pt stated that he had chronic back problems. BP: 95/42 O2sat: 100% at RA. pt completed supine to sit mod A and cues with HOB elevated and use of bed rail. pt able to sit on EOB CGA and cued to correct mid line posture with increase lateral leaning to the L. sit to stand mod to max A and max cues. Max A for standing balance using fWW with increase posterior loss of balance increase forward trunk flexion posture, needing assist for steadiness and balance. pt ambulated ~ 15 ft using FWW requiring mod A with initial steps but needing max A after ~ 5 ft due to increase forward trunk bending and B knee bending. cued to get to upright posture. Pt with sat on chair with max A for controlled descent to chair. pt agreed to stay up on the chair. positioned pt on the chair. call light and table placed within reach. informed pt and family regarding SNF rehab and agreed. Gait Assessment Gait Gait Assistance Moderate Assistance,Maximum Assistance Required: Distance (Feet) 15 Able to Maintain Yes Weight Bearing Status During Gait Assistive Devices Assistive Device Gait Belt,Front Wheeled Walker Orthotic/Prosthetic No Devices or Brace: Gait Deviations General Gait Pattern Antalgic,Decreased Stride Length,Decreased Feet Clearance,Flexed Trunk,Narrow Based Gait,Step-to Gait Factors Limiting Gait Function Factors Limiting Decreased Activity Tolerance,Decreased Strength, Gait Function Difficulty Following Directions,Limited Range of Motion ,Pain,Poor Balance,Poor Safety Awareness PT-Balance Assessment Sitting Balance and Reactions Static Sitting Good Balance Ability Dynamic Sitting Fair Balance Ability Standing Balance and Reactions Static Standing Poor Balance Ability Dynamic Standing Poor Balance Ability Device Used FWW M5 PT-IP Objective Assessments Start: 06/09/25 17:02 Freq: NEEDED Status: Active Protocol: Document 06/09/25 15:25 AB (Rec: 06/09/25 17:21 AB Desktop) Orientation Orientation/Cognition Level of Alertness Alert Orientation Name Language Function Hard of Hearing Ability Safety Awareness Decreased Safety Awareness Memory Description No Deficits Noted Gross Range of Motion Lower Extremity ROM Assessment Within Functional Limits Strength Lower Extremity Strength Assessment Within Functional Limits Muscle Tone Muscle Tone WNL Yes M6 PT-IP Treatment Start: 06/09/25 17:02 Freq: NEEDED Status: Active Protocol: Document 06/09/25 15:25 AB (Rec: 06/09/25 17:21 AB Desktop) Physical Therapy Treatment Education Education Provided Weight Bearing Status,Safety M7 PT-IP Assessment and Plan Start: 06/09/25 17:02 Freq: NEEDED Status: Active Protocol: Document 06/09/25 15:25 AB (Rec: 06/09/25 17:21 AB Desktop) PT Summary Assessment and Plan Potential Rehabilitation Fair Potential Status of Condition Evolving at Evaluation Summary Impairments Pain,ROM,Strength,Balance,Coordination,Sensation,Tone, Cognition,Bed Mobility,Transfers,Gait,Activity Tolerance Assessment Summary pt is an 79 y/o M who had a fall and sustain a L greater trochanteric fx. Per ortho Dr. Miguel, no surgical intervention and pt is WBAT without any precautions. pt requiring mod to max A for transfers and ambulation using FWW and will require 24/7 assist. pt will require SNF rehab to improve overall strength and mobility independence. Goals Bed Mobility Goal Standby Assistance Transfer Goal Minimal Assistance,Front Wheeled Walker Gait Goal Minimal Assistance,Front Wheel Walker Gait Distance 50 Other Goals improve transfers, ambulation using FWW SBA ~ 100 ft Days to Meet Goals 10 Frequency of Treatment Frequency Of Once a Day Treatment Treatment Plan Physical Therapy Bed Mobility Training,Transfer Training,Gait Training, Treatment Plan Therapeutic Exercise,Balance Retraining,Discharge Planning,Hot or Cold Pack,Neuromuscular Re-ed, Coordination Retraining,Manual Therapy Weight Bearing Status Weight Bearing Weight Bear as Tolerated Status Allowed Weight LLE WBAT Bearing Amount ( enter % or #) (%) Recommendations To Nursing Amount of Assist 1 Person Assist Needed Discharge Recommendations PT Discharge SNF Rehab Recommendations Transportation Needs Wheelchair/Cabulance at Discharge - PT assist 1
[2025-06-09 19:37] VITALS: BP 119/64; PULSE 56; RESP 18; TEMP 36.1; O2SAT 97
[2025-06-10 07:45] VITALS: BP 139/61; PULSE 67; RESP 18; TEMP 36.1; O2SAT 98
[2025-06-10] MEDS: ENOXAPARIN 40 MG/0.4 ML SYRINGE SUBCUT (08:42)
[2025-06-10] MEDS: SODIUM CHLORIDE 0.9% FLUSH 10 ML IV (08:43)
--- NOTE | 2025-06-10 08:43 | P.PN_ITS ---
Subjective Subjective Date Patient Seen: 06/10/25 Time Patient Seen: 08:45 Interval history: Patient doing well minimal complaints of pain was able to walk with Physical therapy yesterday and a walker. Tolerating diet. No bowel movements in hospitalization. Vital signs are stable. Exam Vital Signs (past 8 hours): - 06/10/25 07:45 Temperature 97.0 F L Pulse Rate 67 Respiratory Rate 18 Blood Pressure 139/61 Pulse Oximetry 98 Oxygen Flow Rate 0 Oxygen Delivery Method Room Air Oxygen Flow Rate 0 Narrative Exam Narrative: Gen.: Alert no apparent distress quite a talker HEENT: Pupils equal round and reactive oral mucosa is moist Cardio: S1-S2 regular rate and rhythm no murmurs appreciated. Respiratory: Lungs are clear to auscultation no wheezes or crackles normal respiratory effort. Abdomen: Soft nontender no rebound or guarding no liver spleen enlargement no appreciable hernias Extremities: Warm dry perfused Objective Labs 06/09/25 05:33 06/09/25 05:33 [facility] Medical History (Updated 06/08/25 @ 19:09 by Mili Fernandez PA-C) Inguinal hernia of left side without obstruction or gangrene Vitamin B12 deficiency Squamous cell carcinoma of left tonsil Left inguinal hernia Elevated PSA Edema (10/06/11) Essential hypertension (10/06/11) Recurrent major depressive disorder, in full remission (10/06/11) Surgical History S/P cataract extraction (~09/2020) History of surgery on upper extremity (~1952) Family History Mother Pancreatic cancer Thyroid cancer Gallstones Father Prostate cancer Social History marital status: number of children: 4 household members: spouse lives independently: Yes caregiver/support person: No housing: house pets and animals: No education level: other (Graduate school after [employer]) occupational status: other (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: [employer] travel history: over 6 months ago (2002 for 5 months) leisure activities: fishing Smoking Status: Former smoker Tobacco: How many years used: 15 Smokeless tobacco user: other (Cigarettes, pipe, cigars) quit status: quit date established (1980) second hand exposure: No alcohol intake: current substance use type: does not use Assessment & Plan Assessment and plan (1) Closed trochanteric fracture of hip: Qualifiers: Encounter type: initial encounter Laterality: left Qualified Code(s): S72.102A - Unspecified trochanteric fracture of left femur, initial encounter for closed fracture Status: Acute Plan Mild displaced left greater trochanteric fracture. Orthopedic surgery consulted patient and surgeon is elected nonoperative management. Patient will need senior living facility for 6 weeks. He is working with physical therapy here. Patient was able to walk with a walker yesterday. Frequent falls. Patient with frequent falls. Physical therapy Squamous cell carcinoma of head and neck. chronic stable. Hypertension. Patient is on home blood pressure medication and this will be continued. Vitamin B12 deficiency continue with vitamin B12 placement. Mood disorder unspecified. Continue with Lamictal DVT prophylaxis continue with Lovenox Disposition and plan. [facility] facility. Time-Based Coding :: [TOTAL MINUTES] spent with patient and on the chart (including review of chart, obtaining history, exam, reviewing outside data, placing orders, documenting exam and treatment plan, and counseling patient) on [DATE]. Quality VTE Deep Vein Thrombosis/Pulmonary Embolism Present on Admission: No PROFEE Life Sciences Manager Document charge(s): Yes Charge Codes Subsequent inpatient/observation care: [id number]
--- NOTE | 2025-06-10 14:59 | CM.DPNOTE ---
DCP note CERAMIC ENGINEERING PROFESSOR reviewed EMR per scotty Schmid medically cleared to dc once safe DCP secured per PT rec SNF. CERAMIC ENGINEERING PROFESSOR met with pt in room. preference for SNF at . concerns about spouse with dementia. Preference either respite memory care vs if he could pay privately for her to stay at with him. will talk to son about cost/the plan. CERAMIC ENGINEERING PROFESSOR sent referral to February at . can accept. already got auth. can take tomorrow. transport time pending. CERAMIC ENGINEERING PROFESSOR met with son/DIL/pt. updated on plan. updated son/DIL about medicaid LTC process for pt's spouse. unsure if she would qualify due to not being a citizen. gave family information for [facility] and Medicaid LTC keira to try it. looking into [facility] to be close to pt PP until Medicaid LTC can be kicked in. provided blank DPOA paperwork for family. PASRR completed. Per February, potentially 1130 dc time tomorrow. P: dc tomorrow to likely 1130. will continue to follow closely for DCP Coordination DARREL Cardenas
--- NOTE | 2025-06-10 15:13 | PT.IPTN ---
Current Diagnoses Unspecified trochanteric fracture of left femur, initial encounter for closed fracture (06/08/25) Physical Therapy Treatment Note M2 PT-IP Current Condition Start: 06/09/25 17:02 Freq: NEEDED Status: Active Protocol: Document 06/09/25 15:25 AB (Rec: 06/09/25 17:21 AB Desktop) Physical Therapy Current Condition Current Condition Evaluation Date 06/09/25 Treatment Diagnosis fall; L hip fx; difficulty in walking Onset Date 06/08/25 M3 PT-IP Subjective Start: 06/09/25 17:02 Freq: NEEDED Status: Active Protocol: Document 06/10/25 15:03 KJ (Rec: 06/10/25 15:12 KJ Desktop) Subjective Physical Therapy Visit Type Type Treatment Note Visit Start Time 13:44 Visit Stop Time 15:04 Physical Therapy Visit Comments Patient Comments some pain in L hip which worsens during session Therapy Pain Assessment Pain When Pain Assessed During Mobility Pain Present Pain Present Pain Reported Location left hip Description Aching Pain Management Re-positioning Techniques M4 PT-IP Mobility and Gait Start: 06/09/25 17:02 Freq: NEEDED Status: Active Protocol: Document 06/10/25 15:03 KJ (Rec: 06/10/25 15:12 KJ Desktop) PT-Transfer Assessment Sit to and From Stand Sit to and from Independent,Minimal Assistance Stand Equipment Transfer Assistive Gait Belt,Front Wheeled Walker Device Transfers Transfer Destination Chair Transfer Technique Forward/Backward Scoot Transfer Ability Level of Assist Contact Guard Assistance Comments Mobility Comments Stood at sink 5 min for ADLs, CGA, using sink for support Gait Assessment Gait Gait Assistance Contact Guard Assist Required: Distance (Feet) 20 Assistive Devices Assistive Device Gait Belt,Front Wheeled Walker Gait Deviations General Gait Pattern Flexed Trunk,Narrow Based Gait Comments Gait Comments Pt with L sided deficits since causing decreased L ankle ROM, decreased L knee ext, curvature of the spine. All of these affect his gait. PT-Balance Assessment Sitting Balance and Reactions Static Sitting Fair Balance Ability Dynamic Sitting Fair Balance Ability Standing Balance and Reactions Static Standing Fair Balance Ability Dynamic Standing Poor Balance Ability M5 PT-IP Objective Assessments Start: 06/09/25 17:02 Freq: NEEDED Status: Active Protocol: Document 06/10/25 15:03 KJ (Rec: 06/10/25 15:12 KJ Desktop) Orientation Orientation/Cognition Orientation Name,Age,Birthday,Month,Date,Year,Day of Week,Place, Situation Language Function No Deficits Noted Ability Safety Awareness Decreased Safety Awareness Comments Demonstrates poor judgement, decreased awareness of deficits Gross Range of Motion Lower Extremity ROM Assessment Left Impaired Strength Lower Extremity Strength Assessment Left Impaired M6 PT-IP Treatment Start: 06/09/25 17:02 Freq: NEEDED Status: Active Protocol: Document 06/10/25 15:03 KJ (Rec: 06/10/25 15:12 KJ Desktop) Physical Therapy Treatment Exercises Exercises Ankle Pumps,Gluteal Sets,Quad Sets Education Education Provided Weight Bearing Status,Safety Other Treatments Other Treatment Worked on posture in sitting and standing. Instructed Performed pt on sitting posture to discourage lean to the left. Worked on dynamic sitting and standing balance. Encouraged indep ADL performance. M7 PT-IP Assessment and Plan Start: 06/09/25 17:02 Freq: NEEDED Status: Active Protocol: Document 06/10/25 15:03 KJ (Rec: 06/10/25 15:12 KJ Desktop) PT Summary Assessment and Plan Potential Rehabilitation Good Potential Status of Condition Evolving at Evaluation Summary Impairments Pain,ROM,Strength,Balance,Gait,Activity Tolerance Progress Towards Slow Progress due to Pain Goals Assessment Summary Pt has been experiencing a decline in function recently with frequent falls and decreased awareness of deficits. Treatment Plan Physical Therapy Bed Mobility Training,Transfer Training,Gait Training, Treatment Plan Therapeutic Exercise,Balance Retraining Other Continue to work on upright posture. Recommendations and Next Treatment Focus Weight Bearing Status Weight Bearing Weight Bear as Tolerated Status Recommendations To Nursing Amount of Assist 1 Person Assist Needed Discharge Recommendations PT Discharge SNF Rehab Recommendations Transportation Needs Private Vehicle at Discharge
[2025-06-10 22:00] VITALS: BP 106/54; PULSE 68; RESP 18; TEMP 36.1; O2SAT 100
[2025-06-11] MEDS: SODIUM CHLORIDE 0.9% FLUSH 10 ML IV ×2 (03:58→08:20)
[2025-06-11 05:38] LABS: Alanine Aminotransferase 15 IU/L (<50); Albumin 3.4 g/dL (3.5-5.0); Albumin Globulin Ratio 1.1 (1.0-2.8); Alkaline Phosphatase 78 U/L (38-126); Blood Urea Nitrogen 24 mg/dL (9-20); Calcium 8.5 mg/dL (8.4-10.2); Carbon Dioxide 32 mmol/L (22-32); Chloride 96 mmol/L (98-107); Estimated Glomerular Filt Rate > 60 mL/min (>60); Globulin 3.2 g/dL (1.7-4.1); Glucose 91 mg/dL (70-99); HEMOLYSIS < 15 (0-50); Potassium 4.0 mmol/L (3.4-5.1); Sodium 131 mmol/L (137-145); Total Protein 6.6 g/dL (6.3-8.2)
[2025-06-11 06:46] LABS: Add Manual Diff / Slide Review NO; Hematocrit 33.7 % (41-53); Hemoglobin 11.5 g/dL (13.5-17.5); Lymphocytes Absolute Auto 500 /uL (1100-4500); Mean Corpuscular HGB Conc 34.2 % (30-36); Mean Corpuscular Hemoglobin 29.7 PG (26-34); Mean Corpuscular Volume 86.7 fL (80-100); Platelet Count 209 X10^3/uL (150-400)
[2025-06-11 08:00] VITALS: BP 130/64; PULSE 61; RESP 17; TEMP 36; O2SAT 100
--- NOTE | 2025-06-11 08:14 | PM.DS.IH.1 ---
History of Present Illness History of Present Illness Date Patient Seen: 06/11/25 Time Patient Seen: 08:14 Chief complaint: Falls, Back Pain, L hip Injury, Fatigue Narrative: 79-year-old male who lives at home previously independent has a history of hypertension squamous cell carcinoma of the head and neck hernia B12 deficiency and heart failure. Patient apparently had a fall on Wednesday at home. Since that time he has been having discomfort with mobility. And has been ambulating less and less. Patient's children live out of town. They have been in contact with patient and noticed that he had not been moving much so came home and reported that he was having difficulty with walking and brought to the emergency department. Patient states that he is having increasing difficulty with walking over the number of months. In his balance has not been what it she been previously. Patient has also had some falls before this 1. His main complaint is left hip pain. It is worse when he tries to bear weight. Pain is on the outside of his hip.. Patient lives at home with his who has dementia and provides caregiving. {from Dr. Schmid's H&P 06/08/2025} Discharge Providers Provider Date of admission: 06/08/25 18:42 Discharge Date: 06/11/25 Primary care physician: Dwayne Ibarra MD Consults: 06/08/25 16:06 Consult to [facility] - Six Sigma Project Manager Stat Comment: Six Sigma Project Manager Consult needed for:: Other reason (Comment) Comment: Care provider for his who has dementia, recent frequent falls, may need additional assistance at home 06/08/25 18:17 Consult to [facility] Stat Comment: Needs admission; hospitalist also consulted Consulting Provider: [facility] Reason For Exam: Left trochanteric fracture, mildly displaced Reason for consultation: left trochanter fracture Has provider been notified: Yes 06/08/25 18:18 Consult to Hospitalist Service Stat Comment: Consulting Provider: Adalberto Camarillo Reason for consultation: admit, hip fracture, elevated BNP, non ambulatory; ortho consulted 06/08/25 18:35 Consult to Occupational Therapy Evaluate & Treat Comment: Physician Instructions: Evaluate and treat 06/08/25 18:36 Consult to Physical Therapy Evaluate & Treat Comment: Physician Instructions: Evaluate and Treat 06/09/25 13:20 Consult to Physical Therapy Evaluate & Treat Comment: Initiate PT, WBAT Physician Instructions: Evaluate and Treat 06/09/25 13:21 Consult to Occupational Therapy Evaluate & Treat Comment: Initiate OT, WBAT Physician Instructions: Evaluate and treat Discharge provider: Dwayne Ibarra MD Summary Hospital Course Discharge Diagnosis: 1. Minimally displaced left greater trochanteric fracture 2. Frequent falls 3. Hypertension 4. Mood disorder 5. B12 deficiency Hospital Course: As above patient with frequent falls of uncertain etiology sustained a minimally displaced left greater trochanteric fracture which left him minimally ambulatory at best. He sought care in the ER and was evaluated by Orthopedic surgery. No surgical intervention was felt to be appropriate Patient was able to be up and around with assistance with a walker during his hospitalization. He was felt to require continued rehabilitation at a snf facility prior to being able to return all Other medical issues were stable during his hospitalization Status at Discharge Functional status at discharge: uses cane/walker Overall status at discharge: patient is progressing back to baseline Time Spent with Patient Time spent: Greater than 30 minutes Exam Vital Signs (past 8 hours): Oxygen Delivery Method Room Air Oxygen Flow Rate 0 Objective Labs 06/11/25 06:32 06/11/25 05:00 Labs: Laboratory Results - last 24 hr 06/11/25 06/11/25 05:00 06:32 WBC 4.8 RBC 3.89 L Hgb 11.5 L Hct 33.7 L MCV 86.7 MCH 29.7 MCHC 34.2 RDW 13.3 Plt Count 209 Neut % (Auto) 74.7 Lymph % (Auto) 9.5 L [place] % (Auto) 14.1 H Eos % (Auto) 1.2 L Baso % (Auto) 0.5 Neut # (Auto) 3600 Lymph # (Auto) 500 L [place] # (Auto) 700 Eos # (Auto) 100 Baso # (Auto) 0 Sodium 131 L Potassium 4.0 Chloride 96 L Carbon Dioxide 32 BUN 24 H Creatinine 0.91 Estimated GFR > 60 BUN/Creatinine Ratio 26.4 H Glucose 91 Calcium 8.5 Total Bilirubin 0.6 AST 30 ALT 15 Alkaline Phosphatase 78 Total Protein 6.6 Albumin 3.4 L Globulin 3.2 Albumin/Globulin Ratio 1.1 [facility] Medical History Inguinal hernia of left side without obstruction or gangrene Vitamin B12 deficiency Squamous cell carcinoma of left tonsil Left inguinal hernia Elevated PSA Edema (10/06/11) Essential hypertension (10/06/11) Recurrent major depressive disorder, in full remission (10/06/11) Surgical History S/P cataract extraction (~09/2020) History of surgery on upper extremity (~1952) Family History Mother Pancreatic cancer Thyroid cancer Gallstones Father Prostate cancer Social History marital status: number of children: 4 household members: spouse lives independently: Yes caregiver/support person: No housing: house pets and animals: No education level: other (Graduate school after [employer]) 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: [employer] travel history: over 6 months ago (2002 for 5 months) leisure activities: fishing Smoking Status: Former smoker Tobacco: How many years used: 15 Smokeless tobacco user: other (Cigarettes, pipe, cigars) quit status: quit date established (1980) second hand exposure: No alcohol intake: current substance use type: does not use Discharge Plan Discharge Plan Patient Disposition: SNF Transfer to: [facility] Consult as needed: Dental, Hearing, Mental health, Podiatry and Vision I certify the postop hospital snf care is medically necessary on a continuing basis for any conditions for which he/ she received care during this hospitalization.: Yes The receiving facility has agreed to accept transfer and provide medical treatment.: Yes Discharge orders & Medications Prescriptions: New ibuprofen 600 mg Tablet 600 mg PO TID PRN (Reason: Pain, Mild (1-3)) Qty: 60 0RF Continued (DME) Disabled Parking Qty: 1 0RF Rx Instructions: Patient qualifies for disabled parking as per the attached form. lamotrigine 100 mg tablet 100 mg PO DAILY Qty: 90 3RF atenolol 50 mg tablet 50 mg PO DAILY Qty: 90 3RF mecobalamin (vitamin B12) 1 ml IM QMONTH cholecalciferol (vitamin D3) 250 mcg (10,000 unit) capsule 250 mcg PO QWEEK PreserVision AREDS-2 250-90-40-1 mg Capsule 1 tab PO DAILY Follow up/Referrals: Dwayne Ibarra MD [Primary Care Provider, Internal Medicine] Discharge Health Status Multidrug resistant organism: No MDRO Precautions: [place] Diet/Activity/Treatments Diet: Diet as Tolerated Liquid consistency: Normal/Thin Food texture: Regular [facility] Rehabilitation Services Reason for rehabilitation: Recovery r/t decondition Rehab type: Physical therapy and Occupational therapy Visit Report/Discharge Packet Stand Alone Forms: Patient Portal/API Discharge Data Primary Care Provider: Dwayne Ibarra Attending Provider: Dwayne Ibarra Admit Date/Time: 06/08/25 18:42 Quality VTE Deep Vein Thrombosis/Pulmonary Embolism Present on Admission: No IH PROFEE Charge Codes Discharge inpatient/observation: [id number]
[2025-06-11] MEDS: ENOXAPARIN 40 MG/0.4 ML SYRINGE SUBCUT (08:21)
--- NOTE | 2025-06-11 11:04 | CM.DPC ---
DCP Discharge SNF Per MD, pt is medically stable to discharge to SNF today and discharge orders placed and pwk completed. CLEMENT confirmed [facility] can still accept today around 1130 and secure emailed [facility], signed med list, no scripts needed, dc summary and orders to review. CLEMENT met bedside with pt and adult son and updated on above and they remain agreeable to d/c plan today. Provided a witness for pt's POA pwk for medical and pt making son, DIL, and bother his POAs. Answered questions regarding spouse LTC plan and encouraged them to call pt's [facility] CM and pt confirmed he has the number to [facility] in [place] and son agreeable to follow up with Medicaid and [facility]. Updated BASKET TURNER, ceramic plater, and RN and provided number to call report. DARREL Starr
--- NOTE | 2025-06-11 13:05 | PC.NURSE ---
Discharge Note Patient A&O, VSS, RA, no complaints of pain/discomfort. Discharge packet reviewed with patient, all questions/concerns addressed. PIV discontinued. Belongings packed and taken by son. Report given to facility staff. Discharge packet handed to facility staff. Patient taken down via wheelchair to facility vehicle.
== END 2025-06-11 11:30 ==
LOC: ED 17:10 → AC 18:43
PROVIDERS: Family Medicine; Admitting Provider Family Medicine; Emergency Provider Student in an Organized Health Care Education/Training Program; PCP Internal Medicine; Referring Provider Student in an Organized Health Care Education/Training Program; Visit Provider Internal Medicine
DX: S72.102A Unspecified trochanteric fracture of left femur, initial encounter for closed fracture (principal); W18.30XA Fall on same level, unspecified, initial encounter; Z91.81 History of falling; Y92.009 Unspecified place in unspecified non-institutional (private) residence as the place of occurrence of the external cause; I11.0 Hypertensive heart disease with heart failure; I50.9 Heart failure, unspecified; R53.83 Other fatigue; D50.9 Iron deficiency anemia, unspecified; E53.8 Deficiency of other specified B group vitamins; F39 Unspecified mood [affective] disorder; Z87.891 Personal history of nicotine dependence; Z85.89 Personal history of malignant neoplasm of other organs and systems
CPT/HCPCS: 36415; 70450; 71045; 72125; 72192; 80048; 80053; 81001; 82550; 83880; 84484; 85025; 96372; 97116; 97162; 97530; 99223; 99232; 99233; 99239; 99283; 99284; G0378; J1650; J3420